=== PATIENT | female | born 1940 | race Caucasian/White ===

== ENCOUNTER 2019-09-12 11:57 | Emergency (ER) | payer MEDICARE, OTHER, SELFPAY ==
[2019-09-12 12:26] VITALS: BP 127/61; PULSE 71; RESP 20; TEMP 36.6; O2SAT 97; BMI 34.3
--- NOTE | 2019-09-12 12:49 | XRR_ITS ---
PROCEDURE INFORMATION: Exam: XR Chest, 2 Views Exam date and time: 09/12/2019 1:15 PM Age: 79 years old Clinical indication: On breathing; Patient HX: Fall August 01, right sided chest pain with deep breaths; Additional info: Fall, dyspnea TECHNIQUE: Imaging protocol: XR of the chest Views: Frontal and lateral upright views. COMPARISON: CR Chest 1 [place] [id number] 04/09/2019 6:56 AM FINDINGS: Lungs: Mild LEFT lateral basilar subsegmental atelectasis. The lungs are otherwise peripherally clear bilaterally. The pulmonary vasculature is normal. Pleural space: Minimal LEFT pleural effusion. Heart/Mediastinum: The heart is normal in size and contour. Vasculature: Mild aortic arch atherosclerotic calcification without ectasia. Bones/joints: Thoracic spine vertebral body marginal osteophytes are noted at multiple levels. Degenerative disk disease is present at mid-thoracic spine disk levels. XR/XR chest 2V* [id number] IMPRESSION: 1. Mild LEFT lateral basilar subsegmental atelectasis. 2. Minimal LEFT pleural effusion.
--- NOTE | 2019-09-12 14:05 | ED_ITS ---
HPI - Fall General: Chief Complaint: Fall Stated Complaint: Right thoracic pain post fall Time Seen by Provider: 09/12/19 14:05 History of Present Illness: HPI Narrative: Boris is a 79-year-old white female who presents with a ten-day history of falling face first on some concrete and having persistent right-sided lower rib pain since the fall. She states she will occasionally take ibuprofen if the pain gets worse enough . She denies any abdominal pain, nausea, vomiting. She is not currently on any blood thinners. Patient has midline tenderness on T1/2 area. MD complaint: fall Associated symptoms-after fall: Reports chest pain (right lower rib pain); Denies abdominal pain, headache(s) or neck pain Review of Systems Const: Denies: fever or chills Eyes: Denies: change in vision or blurry vision ENMT: Denies: throat pain Card: Reports: chest pain (right lower rib pain); Denies: palpitations Resp: Reports: pain on inspiration (deep inspiration); Denies: shortness of breath GI: Denies: abdominal pain, nausea or vomiting Musc: Denies: neck pain or back pain Skin/Breast: Denies: itching Neuro: Denies: headache or numbness in extremities Psych: Denies: anxiety PFSH ED PFSH: Statuses (acute, chronic, etc) shown below reflect problem list status as previously entered and may not be historically accurate Social History Smoking and tobacco status: never smoked Physical Exam Const: COMMON NORMALS: no apparent distress, oriented x3 and no limitations HENMT: COMMON NORMALS: normocephalic HEAD & SCALP: normocephalic Eye: COMMON NORMALS: PERRL, EOMs intact bilaterally and conjunctivae normal CONJUNCTIVA: Yes conjunctivae normal PUPIL: Yes PERRL Chest: COMMONS NORMALS: inspection of chest normal Resp: COMMON NORMALS: normal respiratory effort and clear to auscultation bilaterally EFFORT & INSPECTION: Yes able to speak in complete sentences AUSCULTATION: clear to auscultation bilaterally Cardio: COMMON NORMALS: regular rate and regular rhythm RATE: regular rate RHYTHM: regular rhythm GI: COMMON NORMALS: normal to inspection, nondistended, normoactive bowel sounds Back/Pelvis: LUMBAR SPINE/LOWER BACK: Yes normal to inspection BACK IMAGE (FEMALE): 1. Tender to palpation here Extremity: COMMON NORMALS: normal to inspection Neuro: COMMON NORMALS: oriented x3, moves all extremities, no focal motor deficits and no sensory deficits noted Psych: COMMON NORMALS: mental status grossly normal ACTIVITY/MOTOR BEHAVIOR: Yes appropriate eye contact Course ED course: Xray is negative but given her midline t spine tenderness will get CT of thoracic spine. Vital Signs: Vital signs: Vital Signs Temperature 97.4 F L 09/12/19 14:43 Pulse Rate 64 09/12/19 14:43 Respiratory Rate 16 09/12/19 14:43 Blood Pressure 149/72 09/12/19 14:43 Pulse Oximetry 97 09/12/19 14:43 MDM - Fall Imaging Data^: CXR: Attestation: I personally reviewed and interpreted this imaging study as follows: Radiologist's impression: IMPRESSION: 1. Mild LEFT lateral basilar subsegmental atelectasis. 2. Minimal LEFT pleural effusion. Other Imaging: Radiologist's impression: CT thoracic spine: IMPRESSION: 1. Degenerative changes as above. 2. No acute thoracic spinal bony abnormality identified. Discharge Plan Discharge Patient Disposition: Home, Self-Care Clinical Impression: Musculoskeletal chest pain Back pain, thoracic Qualifiers: Chronicity: acute Back pain laterality: midline Qualified Code(s): M54.6 - Pain in thoracic spine Condition: Stable Prescriptions: New naproxen 500 mg tablet 500 mg PO BID PRN (Reason: pain) Qty: 12 RF: 0 Referrals: Felice Parra, ASSISTANT PROFESSOR OF ANTHROPOLOGY-C [Primary Care Provider] - Discharge Diet: Advance as tolerated Discharge Activity: Limit activity as instructed Patient Instructions: Fall Prevention (ED) Activity Restrictions/Additional Instructions: Drink plenty of fluids. Use pain medication as needed as directed. Follow-up with your family doctor in 3-5 days. No heavy lifting for the next 2-4 days. Return if any problems. Coding Level of Care Code ED Cost Accountant for Anh Lozano Exam Problem Focused
--- NOTE | 2019-09-12 14:16 | CTR_ITS ---
PROCEDURE INFORMATION: Exam: CT Thoracic Spine Without Contrast Exam date and time: 09/12/2019 3:12 PM Age: 79 years old Clinical indication: Injury or trauma; Initial encounter; Blunt trauma (contusions or hematomas); Other: Midline tenderness t1/2; Injury date: 09/01/19; Patient HX: Fall sep 01, constant tspine pain since TECHNIQUE: Imaging protocol: Computed tomography images of the thoracic spine without contrast. Total DLP: 1888.45 mGy-cm Radiation optimization: All CT scans at this facility use at least one of these dose optimization techniques: automated exposure control; mA and/or kV adjustment per patient size (includes targeted exams where dose is matched to clinical indication); or iterative reconstruction. COMPARISON: No relevant prior studies available. FINDINGS: Vertebrae: Thoracic spine vertebral body marginal osteophytes are noted at multiple levels. Diffuse osteopenia. Mild T3-4 spondylosis. Mild T7-T8 spondylosis, with degenerative disc disease. Mild T11-12 spondylosis. Moderate T12-L1 spondylosis. Discs/Spinal canal/Neural foramina: Severe right T3-4 neural foraminal stenosis. Soft tissues: Unremarkable. Vasculature: Mild aortic valvular calcification is present. Mediastinum: A small ductus bump is present, a normal variant.RIGHT hilar granulomatous case calcifications are present. CT/CT thoracic spin wo con* [id number] IMPRESSION: 1. Degenerative changes as above. 2. No acute thoracic spinal bony abnormality identified. Radiation Dose CTDIVOL = (mGy): DLP = 1888.45 (mGy-cm)
[2019-09-12 14:43] VITALS: BP 149/72; PULSE 64; RESP 16; TEMP 36.3; O2SAT 97
[2019-09-12 17:08] VITALS: BP 150/78; PULSE 64; RESP 16; TEMP 36.5; O2SAT 97
== END 2019-09-12 17:05 | disposition home or self-care (01) ==
PROVIDERS: Emergency Provider Physician Assistant; Family Provider Nurse Practitioner; PCP Nurse Practitioner
DX: R07.89 Other chest pain (principal); M54.6 Pain in thoracic spine
CPT/HCPCS: 71046; 72128; 99281

== ENCOUNTER → 2019-09-14 09:12 | Outpatient (BNVA) | payer MEDICARE, OTHER, SELFPAY | PROVIDERS: Family Provider Nurse Practitioner; PCP Nurse Practitioner; Visit Provider Podiatrist Foot & Ankle Surgery | DX: S92.421A Displaced fracture of distal phalanx of right great toe, initial encounter for closed fracture (principal); X58.XXXA Exposure to other specified factors, initial encounter; M19.071 Primary osteoarthritis, right ankle and foot | CPT/HCPCS: 73630 ==

== ENCOUNTER → 2019-10-24 09:14 | Outpatient (BNVA) | payer MEDICARE, OTHER, SELFPAY | PROVIDERS: Family Provider Nurse Practitioner; PCP Nurse Practitioner; Visit Provider Nurse Practitioner | DX: E11.9 Type 2 diabetes mellitus without complications (principal); E03.9 Hypothyroidism, unspecified | CPT/HCPCS: 80053; 80061; 83036; 84443 ==

== ENCOUNTER → 2020-01-17 09:10 | Outpatient (BNVA) | payer MEDICARE, OTHER, SELFPAY | PROVIDERS: Family Provider Nurse Practitioner; PCP Nurse Practitioner; Visit Provider Nurse Practitioner | DX: E03.8 Other specified hypothyroidism (principal); E11.9 Type 2 diabetes mellitus without complications; I10 Essential (primary) hypertension; Z79.84 Long term (current) use of oral hypoglycemic drugs | CPT/HCPCS: 80053; 80061; 83036; 84443 ==

== ENCOUNTER → 2020-04-17 09:42 | Outpatient (BNVA) | payer MEDICARE, OTHER, SELFPAY | PROVIDERS: Family Provider Nurse Practitioner; PCP Nurse Practitioner; Visit Provider Nurse Practitioner | DX: E03.8 Other specified hypothyroidism (principal); E11.9 Type 2 diabetes mellitus without complications; Z79.84 Long term (current) use of oral hypoglycemic drugs; E78.2 Mixed hyperlipidemia | CPT/HCPCS: 80053; 80061; 83036; 84443 ==

== ENCOUNTER → 2020-05-07 14:40 | Outpatient (BNVA) | payer MEDICARE, OTHER, SELFPAY | PROVIDERS: Family Provider Nurse Practitioner; PCP Nurse Practitioner; Visit Provider Nurse Practitioner | DX: R11.2 Nausea with vomiting, unspecified (principal) | CPT/HCPCS: 81000; 85025 ==

== ENCOUNTER 2020-05-08 12:45 | Emergency (ER) | payer MEDICARE, OTHER, SELFPAY ==
[2020-05-08 12:54] VITALS: BP 156/74; PULSE 70; RESP 16; TEMP 36.8; O2SAT 98; BMI 36.3
[2020-05-08 13:01] VITALS: BP 168/79; PULSE 74; RESP 18; O2SAT 97
[2020-05-08 16:35] LABS: Basophils # 0.1 10^3/uL (0.0-0.1); Basophils % 0.5 %; Eosinophils # 0.1 10^3/uL (0.0-0.8); Eosinophils % 0.7 %; Hematocrit 41.8 % (37.0-47.0); Hemoglobin 13.9 g/dL (11.5-15.3); Lymphocytes # 2.1 10^3/uL (0.8-4.8); Lymphocytes % 19.4 %; Mean Corpuscular HGB Conc 33.3 g/dL (30.0-36.0); Mean Corpuscular Volume 96.3 fL (81-99); Mean Platelet Volume 10.4 fL (7.4-10.4); Monocytes # 0.8 10^3/uL (0.2-0.9); Monocytes % 7.2 %; Neutrophils # 7.69 10^3/uL (1.8-7.7); Neutrophils % 71.9 %; Nucleated Red Blood Cells % 0 %; Platelet Count 226 10^3/cmm (130-400); Red Blood Count 4.34 10^6/uL (4.1-5.3); White Blood Count 10.7 10^3/uL (4.0-10.0)
[2020-05-08 16:53] LABS: Alanine Aminotransferase 17 U/L (0-33); Albumin Level 4.2 g/dL (3.5-5.2); Alkaline Phosphatase 118 IU/L (35-105); Anion Gap 15.5 (5-19); Aspartate Amino Transferase 19 U/L (0-32); Blood Urea Nitrogen 10 mg/dL (8-23); Calcium 9.3 mg/dL (8.5-10.5); Carbon Dioxide 27 mmol/L (22-29); Chloride 107 mmol/L (98-107); Creatinine Clr Calc Pharmacy 66.2726; Glucose 127 mg/dL (65-115); Lipase 14 U/L (13-60); Osmolality Calculated 303 mOsm/kg (285-295); Potassium 3.5 mmol/L (3.5-5.1); Sodium 146 mmol/L (136-145); Total Bilirubin 0.6 mg/dL (0.15-1.2); Total Protein 7.2 g/dL (6.6-8.7)
[2020-05-08 17:25] LABS: Add Urine Microscopic? NO
[2020-05-08 17:27] LABS: Specific Gravity, Urine 1.015 (1.005-1.030); Urine Appearance Clear (CLEAR); Urine Color Yellow (Yellow); pH Urine 6.5 (5-7)
[2020-05-08 17:28] LABS: Bilirubin Urine Neg (Negative); Blood Urine Neg (Negative); Glucose Urine UA Norm (Normal); Ketones Urine 1+ (Negative); Leukocyte Esterase Urine Negative (Negative); Nitrate Urine Negative (Negative); Protein Urine Neg (Negative); Urobilinogen Urine 1 mg/dL (Negative)
[2020-05-08] MEDS: ondansetron 2 mg/ML SDV 2 mL 4 MG IVP (17:40)
[2020-05-08] MEDS: sodium chloride 0.9% 1,000 ML 999 ML IV (17:40)
--- NOTE | 2020-05-08 18:06 | ED_ITS ---
HPI - Headache General: Chief Complaint: Headache Stated Complaint: [place]/headache Time Seen by Provider: 05/08/20 16:36 History of Present Illness: HPI Narrative: This patient presents with symptoms of vomiting since Thursday morning. She also has had a headache. Headache started today. She has not had a fever. She has a history of tick fever which was diagnosed a year ago. She is been a week in the hospital here and then a week in the hospital in [place] because of that tick fever. She also has been told that she needed to have her gallbladder looked at. She denies any exposures to COVID. MD elicited complaint: headache Onset (ago): day(s) (Vomiting for 2 days, headache for 1 day) Onset description: gradually Location: diffuse Severity: moderate Associated symptoms: Reports nausea and vomiting; Deny chest pain, fever(s), malaise or rash Review of Systems General: Reports: 10 or more systems reviewed and unremarkable except in HPI and below Const: Denies: fever(s), chills, fatigue or malaise Eyes: Denies: change in vision ENMT: Denies: odynophagia Card: Denies: chest pain or swelling of feet/ankles Resp: Denies: dyspnea, productive cough or non-productive cough GI: Reports: abdominal pain, nausea and vomiting : Denies: flank pain or difficulty voiding Musc: Denies: neck pain or back pain Skin/Breast: Denies: rash Neuro: Denies: headache(s), numbness in extremities or weakness in extremities Shay/Lymph: Denies: easy bruising or easy bleeding PFSH ED PFSH: Medical History Adult onset hypothyroidism Anxiety Diabetes mellitus treated with oral medication Diverticulosis Essential (primary) hypertension Hyperlipidemia Surgical History H/O tubal ligation Hx of angiography Hx of colonoscopy Status post left foot surgery Hammer toes left Family History Other Heart disease Hypertension Denies family history of Diabetes CAD (coronary artery disease) Clotting disorder Dementia Hyperlipidemia Psychiatric illness Chronic kidney disease (CKD) Suicide Anesthesia complication Bleeding disorder Family history of premature coronary artery disease Lung disease Cancer Stroke Social History Smoking and tobacco status: never smoked Second hand smoke exposure: No Smoking risk assessment/counseling performed?: No Alcohol intake: never Desire information about alcohol rehabilitation?: No Counseling given: No Desire information about substance/drug rehabilitation?: No Counseling given: No Adopted: No Caregiver/support person: No Lives independently: Yes Household members: none Housing: House Marital status: / Number of children: 4 service: No Current occupational status: retired Current occupational exposures/hazards: No Pets and animals: Yes History of recent travel: No Current gender identity: Female Physical Exam Const: COMMON NORMALS: no acute distress, patient oriented x3, no limitations and alert GENERAL APPEARANCE: cooperative and comfortable HENMT: HEAD & SCALP: normal to inspection FACE & SINUS: normal facial exam Eye: GENERAL EYE: appearance normal, both eyes and all related structures Neck/C-Spine: COMMON NORMALS: supple, no meningeal signs and no JVD Chest: COMMONS NORMALS: normal inspection of the chest Resp: COMMON NORMALS: normal respiratory effort, No use of accessory muscles and clear to auscultation bilaterally AUSCULTATION: clear to auscultation bilaterally Cardio: COMMON NORMALS: no JVD, regular rate, regular rhythm and No murmurs present (Cardio) RATE: regular rate RHYTHM: regular rhythm GI: COMMON NORMALS: Normal to inspection, nondistended, normoactive bowel sounds present, Soft to palpation and non-tender INSPECTION: Yes normal to inspection AUSCULTATION: Yes normoactive bowel sounds PALPATION: Yes Soft to palpation Back/Pelvis: COMMON NORMALS: thoracic and lumbar spine normal to inspection Extremity: COMMON NORMALS: normal to inspection Neuro: COMMON NORMALS: patient oriented x3, moves all extremities, no focal motor deficits and no sensory deficits noted SENSORIUM/ORIENTATION: Yes alert MENINGEAL SIGNS: Yes no meningeal signs Psych: COMMON NORMALS: mental status grossly normal, cooperative and normal affect Skin: COMMON NORMALS: no rashes or lesions noted and turgor normal GENERAL SKIN EXAM: no rashes or lesions noted and turgor normal Course ED course: Patient felt much better while in the ED. She was able to tolerate some p.o. fluids. She is somewhat dehydrated and that makes sense with her symptoms. I think that is privates causing her headache. Not sure the cause of her vomiting but it could easily have been some mild GI bug. She understands that as long as she is doing well she can still advance her diet at home and probably can proceed with her knee surgery that scheduled for Thursday. She also understands that if she is not doing better she needs to follow-up or return to the ER. Vital Signs: Vital signs: Vital Signs Temperature 98.2 F 05/08/20 12:54 Pulse Rate 74 05/08/20 19:50 Respiratory Rate 18 05/08/20 19:50 Blood Pressure 146/78 05/08/20 19:50 Pulse Oximetry 98 05/08/20 19:50 MDM - Headache Lab Data: Labs: Lab Results 05/08/20 05/08/20 05/08/20 Range/Units 16:20 16:20 17:15 WBC 10.7 H (4.0-10.0) 10^3/ uL RBC 4.34 (4.1-5.3) 10^6/u L Hgb 13.9 (11.5-15.3) g/dL Hct 41.8 (37.0-47.0) % MCV 96.3 (81-99) fL MCH 32.0 (28.0-34.0) pg MCHC 33.3 (30.0-36.0) g/dL RDW 12.0 L (12.1-15.1) % Plt Count 226 (130-400) 10^3/c mm MPV 10.4 (7.4-10.4) fL Neut % (Auto) 71.9 % Lymph % (Auto) 19.4 % [place] % (Auto) 7.2 % Eos % (Auto) 0.7 % Baso % (Auto) 0.5 % Neut # (Auto) 7.69 (1.8-7.7) 10^3/u L Lymph # (Auto) 2.1 (0.8-4.8) 10^3/u L [place] # (Auto) 0.8 (0.2-0.9) 10^3/u L Eos # (Auto) 0.1 (0.0-0.8) 10^3/u L Baso # (Auto) 0.1 (0.0-0.1) 10^3/u L Nucleated RBC % (a uto) 0 % Nucleated RBCs # 0.0 /100WBC Sodium 146 H (136-145) mmol/L Potassium 3.5 (3.5-5.1) mmol/L Chloride 107 (98-107) mmol/L Carbon Dioxide 27 (22-29) mmol/L Anion Gap 15.5 (5-19) BUN 10 (8-23) mg/dL Creatinine 0.7 (0.5-0.9) mg/dL GFR Calculation Not Reportable Glucose 127 H (65-115) mg/dL Calculated Osmolal ity 303 H (285-295) mOsm/k g Calcium 9.3 (8.5-10.5) mg/dL Total Bilirubin 0.6 (0.15-1.2) mg/dL AST 19 (0-32) U/L ALT 17 (0-33) U/L Alkaline Phosphata se 118 H (35-105) IU/L Total Protein 7.2 (6.6-8.7) g/dL Albumin 4.2 (3.5-5.2) g/dL Globulin 3.0 (1.3-4.6) g/dL Lipase 14 (13-60) U/L Urine Color Yellow (Yellow) Urine Appearance Clear (CLEAR) Urine pH 6.5 (5-7) Ur Specific Gravit y 1.015 (1.005-1.030) Urine Protein Neg (Negative) Urine Glucose (UA) Norm (Normal) Urine Ketones 1+ H (Negative) Urine Blood Neg (Negative) Urine Nitrate Negative (Negative) Urine Bilirubin Neg (Negative) Urine Urobilinogen 1 H (Negative) mg/dL Ur Leukocyte Terri ase Negative (Negative) Discharge Plan Discharge Patient Disposition: Home Clinical Impression: Vomiting Qualifiers: Vomiting type: unspecified Vomiting Intractability: non-intractable Nausea presence: with nausea Qualified Code(s): R11.2 - Nausea with vomiting, unspecified Condition: Stable Prescriptions: No Action carvedilol 6.25 mg tablet 6.25 mg PO DAILY RF: 0 atorvastatin 40 mg tablet 40 mg PO DAILY Qty: 90 RF: 0 furosemide [Lasix] 20 mg tablet 40 mg PO QAM Qty: 180 RF: 0 levothyroxine 125 mcg tablet 125 mcg PO DAILY Qty: 90 RF: 0 lisinopril 10 mg tablet 10 mg PO DAILY Qty: 90 RF: 0 metformin 500 mg tablet extended release 24 hr 1,000 mg PO DAILY Qty: 180 RF: 0 potassium chloride 20 mEq tablet,ER particles/crystals 20 meq PO DAILY Qty: 90 RF: 0 sertraline 25 mg tablet 25 mg PO DAILY Qty: 30 RF: 0 Vitamin D3 25 mcg (1,000 unit) Tablet 25 mcg PO DAILY RF: 0 Glucosamine Daily Complex 1,500-400-100 mg-unit-mg Tablet 1 tab PO DAILY RF: 0 Discharge Orders: Discharge Order (Routine); Ordered 05/08/20 Ordered By: Emeli Terry Referrals: Felice Parra, REWORK OPERATOR-C [Primary Care Provider] - Discharge Diet: Advance as tolerated Discharge Activity: Resume usual activity Patient Instructions: Acute Nausea and Vomiting (ED) Discharge Date/Time: 05/08/20 19:52 Coding Level of Care Code ED Abrasives Sales Representative for Anh Fwwojciech Exam Comprehensive
[2020-05-08 19:50] VITALS: BP 146/78; PULSE 74; RESP 18; O2SAT 98
== END 2020-05-08 19:52 | disposition home or self-care (01) ==
PROVIDERS: Nurse Practitioner Family; Emergency Provider Emergency Medicine; PCP Nurse Practitioner
DX: R11.2 Nausea with vomiting, unspecified (principal); E11.9 Type 2 diabetes mellitus without complications; I10 Essential (primary) hypertension; E78.5 Hyperlipidemia, unspecified
CPT/HCPCS: 12345; 36415; 80053; 81003; 83690; 85025; 96360; 96374; 96375; 99283; J2405; J7030

== ENCOUNTER 2020-06-13 06:00 | Outpatient (RCR) | payer MEDICARE, OTHER, SELFPAY | END 2020-06-16 23:59 | disposition home or self-care (01) | LOC: APT 06:00 | PROVIDERS: PCP Nurse Practitioner; Referring Provider Orthopaedic Surgery; Visit Provider Orthopaedic Surgery | DX: M17.11 Unilateral primary osteoarthritis, right knee (principal) | CPT/HCPCS: 97110; 97140; 97163 ==

== ENCOUNTER 2020-06-13 16:42 | Outpatient (CLI) | payer MEDICARE, OTHER, SELFPAY ==
--- NOTE | 2020-06-13 | USCV_ITS ---
Shanique Wang Age: 79 Gender: F : 1940 Exam Date: 06/13/2020 17:08 Ordering Phys: Felice Parra Technologist: Lenore Bazan [place] [facility] [place]: RIGHT LEG PAIN PROCEDURES: Venous duplex imaging was performed in only the right lower extremity. The following venous structures were evaluated: common femoral vein, profunda vein, proximal portion of the greater saphenous vein, superficial femoral vein, and the popliteal vein. In addition, the posterior tibial and peroneal trunk were evaluated. Serial compression, augmentation maneuvers, and spectral Doppler flow evaluation were performed. FINDINGS: Normal 2-D Doppler and augmentation and compressibility throughout the lower extremity venous structures. Additional imaging through the proximal calf veins also reveals no thrombus. Limited evaluation of the greater saphenous vein is patent with no thrombus. CONCLUSIONS No DVT right lower extremity. Dr. Harika Rivera DO (Electronically Signed) Final Date: 14 June 2020 09:41 S
== END 2020-06-13 16:43 | disposition home or self-care (01) ==
LOC: RAD 16:49
PROVIDERS: PCP Nurse Practitioner; Visit Provider Nurse Practitioner
DX: M79.604 Pain in right leg (principal)
CPT/HCPCS: 80048; 93971

== ENCOUNTER 2020-06-17 06:00 | Outpatient (RCR) | payer MEDICARE, OTHER, SELFPAY | END 2020-07-16 23:59 | disposition home or self-care (01) | LOC: APT 06:00 | PROVIDERS: PCP Nurse Practitioner; Referring Provider Orthopaedic Surgery; Visit Provider Orthopaedic Surgery | DX: Z47.1 Aftercare following joint replacement surgery (principal); Z96.651 Presence of right artificial knee joint | CPT/HCPCS: 97110; 97116; 97140 ==

== ENCOUNTER → 2020-07-10 13:59 | Outpatient (BNVA) | payer MEDICARE, OTHER, SELFPAY | PROVIDERS: PCP Nurse Practitioner; Visit Provider Nurse Practitioner | DX: E11.9 Type 2 diabetes mellitus without complications (principal); Z79.84 Long term (current) use of oral hypoglycemic drugs; E78.2 Mixed hyperlipidemia; I10 Essential (primary) hypertension; E03.8 Other specified hypothyroidism | CPT/HCPCS: 80053; 80061; 83036; 84443; 85025 ==

== ENCOUNTER 2020-07-17 06:00 | Outpatient (RCR) | payer MEDICARE, OTHER, SELFPAY | END 2020-08-16 23:59 | disposition home or self-care (01) | LOC: APT 06:00 | PROVIDERS: PCP Nurse Practitioner; Referring Provider Orthopaedic Surgery; Visit Provider Orthopaedic Surgery | DX: Z47.1 Aftercare following joint replacement surgery (principal); Z96.651 Presence of right artificial knee joint | CPT/HCPCS: 97110; 97140 ==

== ENCOUNTER → 2020-09-13 09:29 | Outpatient (BNVA) | payer MEDICARE, OTHER, SELFPAY | PROVIDERS: PCP Nurse Practitioner; Visit Provider Nurse Practitioner Family | DX: Z20.828 Contact with and (suspected) exposure to other viral communicable diseases (principal) | CPT/HCPCS: 87635 ==

== ENCOUNTER → 2020-10-22 09:07 | Outpatient (BNVA) | payer MEDICARE, OTHER, SELFPAY | PROVIDERS: PCP Nurse Practitioner; Visit Provider Nurse Practitioner | DX: E03.8 Other specified hypothyroidism (principal); E11.9 Type 2 diabetes mellitus without complications; Z79.84 Long term (current) use of oral hypoglycemic drugs; E78.2 Mixed hyperlipidemia; I10 Essential (primary) hypertension | CPT/HCPCS: 80053; 80061; 81000; 83036; 84443; 85025 ==

== ENCOUNTER 2020-10-31 06:00 | Outpatient (RCR) | payer MEDICARE, OTHER, SELFPAY | END 2020-11-14 23:59 | disposition home or self-care (01) | LOC: APT 06:00 | PROVIDERS: PCP Nurse Practitioner; Referring Provider Orthopaedic Surgery; Visit Provider Orthopaedic Surgery | DX: Z47.1 Aftercare following joint replacement surgery (principal); Z96.651 Presence of right artificial knee joint | CPT/HCPCS: 97110; 97163 ==

== ENCOUNTER 2020-11-15 06:00 | Outpatient (RCR) | payer MEDICARE, OTHER, SELFPAY | END 2020-12-14 23:59 | disposition home or self-care (01) | LOC: APT 06:00 | PROVIDERS: PCP Nurse Practitioner; Referring Provider Orthopaedic Surgery; Visit Provider Orthopaedic Surgery | DX: Z47.1 Aftercare following joint replacement surgery (principal); Z96.651 Presence of right artificial knee joint | CPT/HCPCS: 97110 ==

== ENCOUNTER → 2021-01-25 09:00 | Outpatient (BNVA) | payer MEDICARE, OTHER, SELFPAY | PROVIDERS: PCP Nurse Practitioner; Visit Provider Nurse Practitioner | DX: E03.8 Other specified hypothyroidism (principal); E11.9 Type 2 diabetes mellitus without complications; Z79.84 Long term (current) use of oral hypoglycemic drugs; E78.2 Mixed hyperlipidemia; I10 Essential (primary) hypertension | CPT/HCPCS: 80053; 80061; 83036; 84443; 85025 ==

== ENCOUNTER 2021-02-20 06:00 | Outpatient (RCR) | payer MEDICARE, OTHER, SELFPAY | END 2021-03-16 23:59 | disposition home or self-care (01) | LOC: APT 06:00 | PROVIDERS: Referring Provider Nurse Practitioner; Visit Provider Nurse Practitioner | DX: R26.89 Other abnormalities of gait and mobility (principal) | CPT/HCPCS: 97110; 97163 ==

== ENCOUNTER 2021-02-22 11:08 | Emergency (ER) | payer MEDICARE, OTHER, SELFPAY ==
[2021-02-22 11:10] VITALS: BP 162/84; PULSE 72; RESP 16; TEMP 36.8; O2SAT 94; BMI 36.3
--- NOTE | 2021-02-22 12:45 | ECG_ITS ---
[facility] Test Date: 2021-02-22 Pat Name: Shanique Wang Department: Room: Gender: Female Supervisor Coating: : 1940 Requested By: Teresa Monsalve Order Number: [id number] Vane MD: Gaurav Espinoza M.D. Measurements Intervals [place] Rate: 72 P: 13 ME: 166 QRS: 14 QRSD: 106 T: 38 QT: 390 QTc: 427 Interpretive Statements SINUS RHYTHM No previous ECG available for comparison Electronically Signed On 02-24-2021 17:17:48 CDT by Gaurav Espinoza M.D. [id number]
--- NOTE | 2021-02-22 12:45 | XR_ITS ---
WS: [id number] Portable AP upright chest, 02/22/2021 Clinical Data: chest pain Comparison: PA and lateral chest, 09/12/2019. Findings: No nodules, masses or effusions are seen. The heart is slightly enlarged. The pulmonary vas cularity is not increased. No pneumonia or pneumothorax is seen. The aortic arch and descending aorta show minimal tortuosity. 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 XR/XR chest 1V portable [id number] Impression: Cardiomegaly and atherosclerosis.
[2021-02-22 14:14] LABS: Basophils % 0.6 %; Eosinophils # 0.1 10^3/uL (0.0-0.8); Eosinophils % 1.8 %; Hematocrit 44.9 % (37.0-47.0); Hemoglobin 14.7 g/dL (11.5-15.3); Lymphocytes # 1.5 10^3/uL (0.8-4.8); Lymphocytes % 20.2 %; Mean Corpuscular HGB Conc 32.7 g/dL (30.0-36.0); Mean Corpuscular Hemoglobin 31.6 pg (28.0-34.0); Mean Corpuscular Volume 96.6 fL (81-99); Mean Platelet Volume 10.6 fL (7.4-10.4); Monocytes # 0.5 10^3/uL (0.2-0.9); Monocytes % 6.8 %; Neutrophils # 5.09 10^3/uL (1.8-7.7); Neutrophils % 70.3 %; Nucleated Red Blood Cells % 0 %; Platelet Count 180 10^3/cmm (130-400); Red Blood Count 4.65 10^6/uL (4.1-5.3); Red Cell Distribution Width 12.4 % (12.1-15.1); White Blood Count 7.2 10^3/uL (4.0-10.0)
--- NOTE | 2021-02-22 14:24 | ED_ITS ---
HPI - General Adult General: Chief complaint: General Medical Stated complaint: Chest pain, L arm pain, N/V Time Seen by Provider: 02/22/21 14:23 History of Present Illness: HPI narrative: 80-year-old female presents to the emergency room with complaints of chest pain nausea and vomiting and palpitations. Happened this morning she was at rest at the time it resolved spontaneously she has had it in the past she is generally does not feel good it will get better as the day goes on. She has previously had several angiograms last one being approximately 4 years ago which she states she was told was normal is not done any interventions at any of the angiograms. Patient is diabetic and is on Metformin she is on carvedilol she has not had any other rate control medications she only takes aspirin is not on any anticoagulants she has no history of DVT not recently had any fever sweats chills or productive cough no orthopnea Onset (ago): hour(s) Location: chest Radiation: non-radiation Severity: mild Quality: sharp Pain Consistency: intermittent and now resolved Relieving factors: none Exacerbating factors: none Associated symptoms: Reports chest pain and nausea; Deny confusion, cough, diaphoresis, decreased appetite, dyspnea, fevers/chills, headache(s), malaise, rash, palpitations, seizures, short of breath, syncope, vomiting or weakness Treatments prior to arrival: none Review of Systems Const: Denies: malaise or diaphoresis ENMT: Denies: throat pain, ear or mastoid pain, nasal discharge or nasal congestion Card: Reports: chest pain; Denies: palpitations or syncope Resp: Denies: dyspnea GI: Reports: nausea; Denies: vomiting : Denies: flank pain, difficulty voiding, dysuria, urinary frequency or urinary urgency Skin/Breast: Denies: rash Neuro: Denies: headache(s) or confusion Physical Exam Const: COMMON NORMALS: no acute distress GENERAL APPEARANCE: cooperative and comfortable ORIENTATION/CONSCIOUSNESS: Yes awake, Yes oriented to person, Yes oriented to place and Yes oriented to time HENMT: COMMON NORMALS: normocephalic, atraumatic and hearing grossly normal bilaterally HEAD & SCALP: normocephalic and atraumatic Neck/C-Spine: COMMON NORMALS: no JVD Resp: COMMON NORMALS: normal respiratory effort, No retractions, No use of accessory muscles and clear to auscultation bilaterally AUSCULTATION: clear to auscultation bilaterally Cardio: COMMON NORMALS: no JVD, regular rate, regular rhythm and No murmurs present (Cardio) RATE: regular rate RHYTHM: regular rhythm GI: COMMON NORMALS: Soft to palpation and No hepatosplenomegaly present AUSCULTATION: Yes normoactive bowel sounds PALPATION: Yes Soft to palpation, No Tenderness to palpation present (GI), No Guarding due to palpation present (GI) and Yes No hepatosplenomegaly present Extremity: COMMON NORMALS: normal to inspection, capillary refill normal, no clubbing, cyanosis or edema, no calf tenderness and no pedal edema Neuro: SENSORIUM/ORIENTATION: Yes oriented to person, Yes oriented to place and Yes oriented to time Skin: COMMON NORMALS: no rashes or lesions noted GENERAL SKIN EXAM: no rashes or lesions noted Course Vital Signs: Vital signs: Vital Signs Temperature 98.3 F 02/22/21 11:10 Pulse Rate 80 02/22/21 18:50 Respiratory Rate 18 02/22/21 18:50 Blood Pressure 163/96 02/22/21 18:50 Pulse Oximetry 96 02/22/21 18:50 MDM - General Adult MDM Narrative: Medical decision making narrative: Follow-up with your primary care doctor within the next 4 to 5 days return to emergency room if you have any worsening symptoms. Lab Data: Labs: Lab Results 02/22/21 02/22/21 02/22/21 Range/Units 14:09 14:09 14:09 WBC 7.2 (4.0-10.0) 10^3/ uL RBC 4.65 (4.1-5.3) 10^6/u L Hgb 14.7 (11.5-15.3) g/dL Hct 44.9 (37.0-47.0) % MCV 96.6 (81-99) fL MCH 31.6 (28.0-34.0) pg MCHC 32.7 (30.0-36.0) g/dL RDW 12.4 (12.1-15.1) % Plt Count 180 (130-400) 10^3/c mm MPV 10.6 H (7.4-10.4) fL Neut % (Auto) 70.3 % Lymph % (Auto) 20.2 % [place] % (Auto) 6.8 % Eos % (Auto) 1.8 % Baso % (Auto) 0.6 % Neut # (Auto) 5.09 (1.8-7.7) 10^3/u L Lymph # (Auto) 1.5 (0.8-4.8) 10^3/u L [place] # (Auto) 0.5 (0.2-0.9) 10^3/u L Eos # (Auto) 0.1 (0.0-0.8) 10^3/u L Baso # (Auto) 0.0 (0.0-0.1) 10^3/u L Nucleated RBC % (a uto) 0 % Nucleated RBCs # 0.0 /100WBC Sodium 143 (136-145) mmol/L Potassium 3.9 (3.5-5.1) mmol/L Chloride 106 (98-107) mmol/L Carbon Dioxide 27 (22-29) mmol/L Anion Gap 13.9 (5-19) BUN 11 (8-23) mg/dL Creatinine 0.5 (0.5-0.9) mg/dL GFR Calculation Not Reportable Glucose 113 (65-115) mg/dL Calculated Osmolal ity 296 H (285-295) mOsm/k g Calcium 9.0 (8.5-10.5) mg/dL Total Bilirubin 0.6 (0.15-1.2) mg/dL AST 18 (0-32) U/L ALT 23 (0-33) U/L Alkaline Phosphata se 117 H (35-105) IU/L Troponin T Baselin e 20 H (0-10) ng/L Troponin T 120 Min [place] (0-10) ng/L Delta Troponin T (0-10) ABS# Total Protein 6.6 (6.6-8.7) g/dL Albumin 4.1 (3.5-5.2) g/dL Globulin 2.5 (1.3-4.6) g/dL 02/22/21 Range/Units 16:12 WBC (4.0-10.0) 10^3/ uL RBC (4.1-5.3) 10^6/u L Hgb (11.5-15.3) g/dL Hct (37.0-47.0) % MCV (81-99) fL MCH (28.0-34.0) pg MCHC (30.0-36.0) g/dL RDW (12.1-15.1) % Plt Count (130-400) 10^3/c mm MPV (7.4-10.4) fL Neut % (Auto) % Lymph % (Auto) % [place] % (Auto) % Eos % (Auto) % Baso % (Auto) % Neut # (Auto) (1.8-7.7) 10^3/u L Lymph # (Auto) (0.8-4.8) 10^3/u L [place] # (Auto) (0.2-0.9) 10^3/u L Eos # (Auto) (0.0-0.8) 10^3/u L Baso # (Auto) (0.0-0.1) 10^3/u L Nucleated RBC % (a uto) % Nucleated RBCs # /100WBC Sodium (136-145) mmol/L Potassium (3.5-5.1) mmol/L Chloride (98-107) mmol/L Carbon Dioxide (22-29) mmol/L Anion Gap (5-19) BUN (8-23) mg/dL Creatinine (0.5-0.9) mg/dL GFR Calculation Glucose (65-115) mg/dL Calculated Osmolal ity (285-295) mOsm/k g Calcium (8.5-10.5) mg/dL Total Bilirubin (0.15-1.2) mg/dL AST (0-32) U/L ALT (0-33) U/L Alkaline Phosphata se (35-105) IU/L Troponin T Baselin e (0-10) ng/L Troponin T 120 Min [place] 20.28 H (0-10) ng/L Delta Troponin T 0.28 (0-10) ABS# Total Protein (6.6-8.7) g/dL Albumin (3.5-5.2) g/dL Globulin (1.3-4.6) g/dL Discharge Plan Discharge Patient Disposition: Home Clinical Impression: Pneumonia Condition: Stable Prescriptions: New levofloxacin 750 mg tablet 750 mg PO DAILY 10 Days RF: 0 No Action atorvastatin 40 mg tablet 40 mg PO DAILY RF: 0 carvedilol 6.25 mg tablet 6.25 mg PO BID RF: 0 potassium chloride 20 mEq tablet,ER particles/crystals 20 meq PO DAILY RF: 0 levothyroxine 125 mcg tablet 125 mcg PO DAILY RF: 0 lisinopril 10 mg tablet 10 mg PO DAILY RF: 0 sertraline 25 mg tablet 25 mg PO DAILY RF: 0 furosemide 20 mg tablet 20 mg PO DAILY RF: 0 metformin 500 mg tablet extended release 24 hr 1,000 mg PO DAILY RF: 0 Aspir-81 81 mg PO DAILY RF: 0 Zyrtec 10 mg Tablet 10 mg PO DAILY RF: 0 cranberry extract 250 mg Tablet 250 mg PO DAILY RF: 0 Vitamin D3 25 mcg (1,000 unit) Tablet 25 mcg PO DAILY RF: 0 Glucosamine 2 tab PO DAILY RF: 0 Discharge Orders: Discharge ED (Routine); Ordered 02/22/21 Ordered By: Marco Mills Patient Instructions: Opioid Safety Coding Level of Care Code ED Dental Intern for Anh Fwd Exam Comprehensive
--- NOTE | 2021-02-22 14:45 | ECG_ITS ---
[facility] Test Date: 2021-02-22 Pat Name: Shanique Wang Department: Room: Gender: Female Behaviorist: : 1940 Requested By: Teresa Monsalve Order Number: [id number] Vane MD: Gaurav Espinoza M.D. Measurements Intervals [place] Rate: 68 P: 18 WI: 186 QRS: 15 QRSD: 112 T: 24 QT: 391 QTc: 418 Interpretive Statements SINUS RHYTHM MODERATE INTRAVENTRICULAR CONDUCTION DELAY [105+ ms QRS DURATION, 80+ ms Q/S IN V1/V2, NO Q AND 60+ ms R IN I/aVL/V5/V6] Compared to ECG 02/22/2021 11:18:41 Intraventricular conduction delay now present Electronically Signed On 02-24-2021 17:24:48 CDT by Gaurav Espinoza M.D. [id number] f
[2021-02-22 14:53] LABS: Alanine Aminotransferase 23 U/L (0-33); Albumin Level 4.1 g/dL (3.5-5.2); Alkaline Phosphatase 117 IU/L (35-105); Anion Gap 13.9 (5-19); Aspartate Amino Transferase 18 U/L (0-32); Blood Urea Nitrogen 11 mg/dL (8-23); Carbon Dioxide 27 mmol/L (22-29); Chloride 106 mmol/L (98-107); Globulin 2.5 g/dL (1.3-4.6); Glucose 113 mg/dL (65-115); Osmolality Calculated 296 mOsm/kg (285-295); Potassium 3.9 mmol/L (3.5-5.1); Sodium 143 mmol/L (136-145); Total Bilirubin 0.6 mg/dL (0.15-1.2); Total Protein 6.6 g/dL (6.6-8.7); Troponin(5th) Baseline 20 ng/L (0-10)
[2021-02-22 17:02] LABS: Troponin 5 2HR 20.28 ng/L (0-10); Troponin 5 2HR Delta 0.28 ABS# (0-10)
[2021-02-22 18:48] VITALS: BP 157/82; PULSE 75; RESP 18; O2SAT 96
[2021-02-22 18:50] VITALS: BP 163/96; PULSE 80; RESP 18; O2SAT 96
== END 2021-02-22 18:54 | disposition home or self-care (01) ==
PROVIDERS: Physician Assistant; Emergency Provider Family Medicine
DX: J18.9 Pneumonia, unspecified organism (principal); Z79.82 Long term (current) use of aspirin; Z79.84 Long term (current) use of oral hypoglycemic drugs
CPT/HCPCS: 36415; 71045; 80053; 84484; 85025; 93005; 99283

== ENCOUNTER → 2021-04-23 08:51 | Outpatient (BNVA) | payer MEDICARE, OTHER, SELFPAY | PROVIDERS: PCP Nurse Practitioner; Visit Provider Nurse Practitioner | DX: E03.8 Other specified hypothyroidism (principal); E11.9 Type 2 diabetes mellitus without complications; Z79.84 Long term (current) use of oral hypoglycemic drugs; I10 Essential (primary) hypertension | CPT/HCPCS: 80053; 80061; 83036; 84443; 85025 ==

== ENCOUNTER → 2021-05-28 09:48 | Outpatient (BNVA) | payer MEDICARE, OTHER, SELFPAY | PROVIDERS: PCP Nurse Practitioner; Visit Provider Nurse Practitioner | DX: E11.9 Type 2 diabetes mellitus without complications (principal); Z79.84 Long term (current) use of oral hypoglycemic drugs; Z12.39 Encounter for other screening for malignant neoplasm of breast | CPT/HCPCS: 81000 ==

== ENCOUNTER → 2021-07-15 08:45 | Outpatient (BNVA) | payer MEDICARE, OTHER, SELFPAY | PROVIDERS: PCP Nurse Practitioner; Visit Provider Nurse Practitioner | DX: E11.9 Type 2 diabetes mellitus without complications (principal); Z79.84 Long term (current) use of oral hypoglycemic drugs; E03.8 Other specified hypothyroidism | CPT/HCPCS: 80053; 80061; 83036; 84443 ==

== ENCOUNTER 2021-07-26 08:19 | Outpatient (CLI) | payer MEDICARE, OTHER, SELFPAY ==
--- NOTE | 2021-07-26 08:30 | MM_ITS ---
WS: [id number] Exam: [id number] Date/Time of Exam: 07/26/2021 8:28 AM Reason For Exam: Z12.39 - Encounter for other screening for malignant neop... VIEWS: MLO and CC views both breasts. Comparison made with prior exam of 03/24/2016, 07/27/2017, 11/08/2018.. Findings: Stable appearing spiculated density in the medial left breast. No new suspicious mass or nodule. No s uspicious calcification in either breast. Scattered fibroglandular densities MM/[id number] Impression: BI-RADS: 2-Benign FOLLOW-UP: 1 Year Follow-up This mammogram was also analyzed by the Computer Aided Detection System R2 Imag e Furnace Keeper.
== END 2021-07-26 08:20 | disposition home or self-care (01) ==
LOC: RADSHAW 08:22
PROVIDERS: PCP Nurse Practitioner; Visit Provider Nurse Practitioner
DX: Z12.31 Encounter for screening mammogram for malignant neoplasm of breast (principal)
CPT/HCPCS: 77067

== ENCOUNTER → 2021-08-20 11:50 | Outpatient (BNVA) | payer MEDICARE, OTHER, SELFPAY | PROVIDERS: PCP Nurse Practitioner; Visit Provider Nurse Practitioner Family | DX: R07.0 Pain in throat (principal); R59.1 Generalized enlarged lymph nodes | CPT/HCPCS: 85025; 87070; 87880 ==

== ENCOUNTER → 2021-10-07 08:33 | Outpatient (BNVA) | payer MEDICARE, OTHER, SELFPAY | PROVIDERS: PCP Nurse Practitioner; Visit Provider Nurse Practitioner | DX: E03.8 Other specified hypothyroidism (principal); E11.9 Type 2 diabetes mellitus without complications; I10 Essential (primary) hypertension; Z79.84 Long term (current) use of oral hypoglycemic drugs | CPT/HCPCS: 80053; 80061; 83036; 84443 ==

== ENCOUNTER → 2021-10-09 08:54 | Outpatient (BNVA) | payer MEDICARE, OTHER, SELFPAY | PROVIDERS: PCP Nurse Practitioner; Visit Provider Nurse Practitioner | DX: E11.9 Type 2 diabetes mellitus without complications (principal); Z79.84 Long term (current) use of oral hypoglycemic drugs; I10 Essential (primary) hypertension; E03.8 Other specified hypothyroidism; F41.9 Anxiety disorder, unspecified | CPT/HCPCS: 81000 ==

== ENCOUNTER 2021-10-16 12:23 | Outpatient (CLI) | payer MEDICARE, OTHER, SELFPAY ==
--- NOTE | 2021-10-16 12:39 | CT_ITS ---
WS: [id number] CT NECK TECHNIQUE: Contrast-enhanced CT of the neck with coronal and sagittal reformatted images. CLINICAL INFORMATION: DYSPHAGIA COMPARISON: None. DLP: 254.[address] scans at [facility] use at least one of these dose optimization techniques: automated e xposure control; mA and/or kV adjustment per patient size (includes targeted exams where dose is matc hed to clinical indication); or iterative reconstruction. FINDINGS: Parotid glands are normal. Normal submandibular glands. Normal tongue base. Normal palatine tonsils. Normal parapharyngeal fat. Normal posterior nasopharynx. No evidence of supraglottic or glottic mass. Normal piriform sinuses. Subglottic airway is patent. No cervical lymphadenopathy. Straightening of the normal cervical lordosis. Mild cervical curve. Mode rate spondylitic changes cervical spine. Retropharyngeal course RIGHT cervical ICA. No cervical lymph adenopathy. Small peribronchial nodules in RIGHT upper lobe largest measuring 3 mm. Paranasal sinuses and mastoid air cells well aerated. 0This can be further evaluated with chest CT. CT/CT neck w con* [id number] IMPRESSION: 1. No evidence of supraglottic or glottic mass. 2. Normal posterior nasopharynx and tongue base. 3. No cervical lymphadenopathy. 4. Normal salivary glands. 5. Cluster of peribronchial nodules in the RIGHT upper lobe largest measuring 3 mm. This can be further evaluated chest CT. 6. Moderate spondylitic changes cervical spine. 7. Retropharyngeal course RIGHT cervical ICA.
[2021-10-16] MEDS: iohexol 300 mg/mL 100 mL Btl IV (13:30)
== END 2021-10-16 12:24 | disposition home or self-care (01) ==
LOC: RAD 12:27
PROVIDERS: PCP Nurse Practitioner; Visit Provider Specialist
DX: R13.10 Dysphagia, unspecified (principal)
CPT/HCPCS: 70491

== ENCOUNTER 2021-10-18 09:27 | Outpatient (CLI) | payer MEDICARE, OTHER, SELFPAY ==
--- NOTE | 2021-10-18 09:45 | FL_ITS ---
WS: [id number] Barium swallow and esophagram, 10/18/2021 Clinical Data: DYSPHAGIA Comparison: None. Fluoroscopy time: 0.9 minutes. Findings: The patient swallowed the thick and thin barium, and it flowed through the hypopharynx without hesita tion. No stricture, mass, polyp or erosion was seen. No aspiration or penetration occurred. The barium entered the esophagus and there was normal motility throughout. No hiatal hernia, reflux, stricture, polyp, mass, erosion or ulcer was noted. FL/FL barium swallow [id number] Impression: Normal esophagram.
== END 2021-10-18 09:28 | disposition home or self-care (01) ==
LOC: RAD 09:33
PROVIDERS: PCP Nurse Practitioner; Visit Provider Specialist
DX: R13.10 Dysphagia, unspecified (principal)
CPT/HCPCS: 74220

== ENCOUNTER → 2021-12-30 08:53 | Outpatient (BNVA) | payer MEDICARE, OTHER, SELFPAY | PROVIDERS: PCP Nurse Practitioner; Visit Provider Nurse Practitioner | DX: E11.9 Type 2 diabetes mellitus without complications (principal); Z79.84 Long term (current) use of oral hypoglycemic drugs; E03.8 Other specified hypothyroidism; I10 Essential (primary) hypertension | CPT/HCPCS: 80053; 80061; 83036; 84443 ==

== ENCOUNTER → 2022-01-01 10:01 | Outpatient (BNVA) | payer MEDICARE, OTHER, SELFPAY | PROVIDERS: PCP Nurse Practitioner; Visit Provider Nurse Practitioner | DX: M16.11 Unilateral primary osteoarthritis, right hip (principal); M25.551 Pain in right hip | CPT/HCPCS: 73502 ==

== ENCOUNTER → 2022-02-07 11:29 | Outpatient (BNVA) | payer MEDICARE, OTHER, SELFPAY | PROVIDERS: PCP Nurse Practitioner; Visit Provider Family Medicine | DX: F41.9 Anxiety disorder, unspecified (principal); R06.00 Dyspnea, unspecified; R60.9 Edema, unspecified | CPT/HCPCS: 80053; 84443; 85025 ==

== ENCOUNTER 2022-04-11 06:00 | Outpatient (RCR) | payer MEDICARE, OTHER, SELFPAY | END 2022-04-16 23:59 | disposition home or self-care (01) | LOC: APT 06:00 | PROVIDERS: PCP Nurse Practitioner; Visit Provider Orthopaedic Surgery | DX: Z47.1 Aftercare following joint replacement surgery (principal); Z96.653 Presence of artificial knee joint, bilateral; I89.0 Lymphedema, not elsewhere classified | CPT/HCPCS: 97110; 97161 ==

== ENCOUNTER 2022-04-17 06:00 | Outpatient (RCR) | payer MEDICARE, OTHER, SELFPAY | END 2022-05-16 23:59 | disposition home or self-care (01) | LOC: APT 06:00 | PROVIDERS: PCP Nurse Practitioner; Visit Provider Orthopaedic Surgery | DX: M25.561 Pain in right knee (principal); Z96.651 Presence of right artificial knee joint; I89.0 Lymphedema, not elsewhere classified; R53.1 Weakness | CPT/HCPCS: 97110 ==

== ENCOUNTER → 2022-05-02 09:16 | Outpatient (BNVA) | payer MEDICARE, OTHER, SELFPAY | PROVIDERS: PCP Family Medicine; Visit Provider Family Medicine | DX: E11.9 Type 2 diabetes mellitus without complications (principal); Z79.84 Long term (current) use of oral hypoglycemic drugs | CPT/HCPCS: 81000 ==

== ENCOUNTER → 2022-05-15 15:06 | Outpatient (BNVA) | payer MEDICARE, OTHER, SELFPAY | PROVIDERS: PCP Family Medicine; Visit Provider Podiatrist Foot & Ankle Surgery | DX: E11.9 Type 2 diabetes mellitus without complications (principal); L60.3 Nail dystrophy; M20.41 Other hammer toe(s) (acquired), right foot; M20.42 Other hammer toe(s) (acquired), left foot; Z79.84 Long term (current) use of oral hypoglycemic drugs | CPT/HCPCS: 73630; 99213; 99214 ==

== ENCOUNTER → 2022-05-26 08:00 | Outpatient (BNVA) | payer MEDICARE, OTHER, SELFPAY | PROVIDERS: PCP Family Medicine; Visit Provider Nurse Practitioner | DX: E03.8 Other specified hypothyroidism (principal); E11.9 Type 2 diabetes mellitus without complications; I10 Essential (primary) hypertension; Z79.84 Long term (current) use of oral hypoglycemic drugs; F41.9 Anxiety disorder, unspecified | CPT/HCPCS: 80053; 80061; 83036; 84443 ==

== ENCOUNTER 2022-06-16 06:00 | Outpatient (RCR) | payer MEDICARE, OTHER, SELFPAY | END 2022-06-16 23:55 | disposition home or self-care (01) | LOC: SPT 06:00 | PROVIDERS: PCP Family Medicine; Visit Provider Nurse Practitioner | DX: H81.313 Aural vertigo, bilateral (principal) | CPT/HCPCS: 95992; 97162 ==

== ENCOUNTER 2022-06-17 06:00 | Outpatient (RCR) | payer MEDICARE, OTHER, SELFPAY | END 2022-07-15 16:39 | disposition home or self-care (01) | LOC: SPT 06:00 | PROVIDERS: PCP Family Medicine; Visit Provider Nurse Practitioner | DX: H81.313 Aural vertigo, bilateral (principal) | CPT/HCPCS: 95992 ==

== ENCOUNTER 2022-07-05 18:42 | Emergency (ER) | payer MEDICARE, OTHER, SELFPAY ==
[2022-07-05 20:02] VITALS: BP 165/87; PULSE 94; RESP 19; TEMP 37.6; O2SAT 94; BMI 36.3
[2022-07-05 20:44] LABS: Influenza A by IFA negative (Negative); Influenza B by IFA negative (Negative)
--- NOTE | 2022-07-06 | PC.NURSE ---
pt c/o feeling like her heart is out of rhythm ekg completed and given to dr de la vega for review. no acute changes at this time.
--- NOTE | 2022-07-06 01:06 | XRR_ITS ---
PROCEDURE INFORMATION: Exam: XR Chest Exam date and time: 07/06/2022 2:46 AM Age: 82 years old Clinical indication: Cough; Additional info: Upper respiratory symptoms TECHNIQUE: Imaging protocol: Radiologic exam of the chest. Views: 1 view. COMPARISON: CR XR chest 1V portable [id number] 02/22/2021 12:46 PM FINDINGS: Lungs: No CHF/pulmonary edema. Visible lungs appear essentially clear. Pleural spaces: No visible pneumothorax. No definite pleural fluid. Heart/Mediastinum: Heart size appears upper range of normal. Bones/joints: No significant acute finding. XR/XR chest 1V portable [id number] IMPRESSION: 1. No definite pneumonia or CHF. 2. Other findings discussed above.
--- NOTE | 2022-07-06 01:07 | W.ED.URI ---
HPI - URI/Sore Throat General: Chief Complaint: Headache Stated Complaint: headache, ear pain, sore throat Time Seen by Provider: 07/06/22 00:43 History of Present Illness: Patient is a 82-year-old female comes to the ED with upper respiratory symptoms. Symptoms started yesterday. She is complaining of having bilateral ear pain, sore throat, nasal drainage and congestion and headache. Endorses having a fever but denies any chills or body aches. Denies being around any sick contacts. Headache has been going on now for several weeks and occurs when she lays her head down at night and goes to bed. She has never had a headache like this before. She rates her headache an 8 out of 10. Denies any neurological deficits or symptoms. Associated symptoms: Reports headache(s) and nasal congestion; Deny abdominal pain, chills, chest pain, diarrhea, fever(s), nausea or vomiting Review of Systems Const: Denies: fever(s), chills or fatigue Eyes: Denies: change in vision or eye discomfort ENMT: Reports: throat pain, nasal discharge and nasal congestion; Denies: odynophagia Card: Denies: chest pain, palpitations, edema, swelling of feet/ankles, dyspnea on exertion or orthopnea Resp: Reports: non-productive cough; Denies: dyspnea or productive cough GI: Denies: abdominal pain, nausea, vomiting, diarrhea, constipation or hematochezia : Denies: flank pain, dysuria or hematuria Musc: Denies: neck pain, back pain or extremity swelling Skin/Breast: Denies: rash or new lesions Neuro: Reports: headache(s); Denies: numbness in extremities or weakness in extremities PFSH ED PFSH: Medical History Adult onset hypothyroidism Anxiety Diabetes mellitus treated with oral medication Diverticulosis Environmental and seasonal allergies Essential (primary) hypertension Hyperlipidemia Surgical History H/O tubal ligation History of cataract both eyes in Sep.24 & 2021 with [facility] 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 Lanza [place], [place] Hx of angiography Hx of colonoscopy Status post left foot surgery Hammer toes left Family History Other Heart disease Hypertension Denies family history of Diabetes CAD (coronary artery disease) Clotting disorder Dementia Hyperlipidemia Psychiatric illness Chronic kidney disease (CKD) Suicide Anesthesia complication Bleeding disorder Family history of premature coronary artery disease Lung disease Cancer Stroke Social History Smoking and tobacco status: never smoked Second hand smoke exposure: No Smoking risk assessment/counseling performed?: No Alcohol intake: never Desire information about alcohol rehabilitation?: No Counseling given: No Desire information about substance/drug rehabilitation?: No Counseling given: No Adopted: No Caregiver/support person: No Lives independently: Yes Household members: none Housing: House Marital status: / Number of children: 4 service: No Current occupational status: retired Current occupational exposures/hazards: No Pets and animals: Yes History of recent travel: No Current gender identity: Female Physical Exam Const: COMMON NORMALS: no acute distress, patient oriented x3 and alert GENERAL APPEARANCE: cooperative and comfortable HENMT: COMMON NORMALS: normocephalic HEAD & SCALP: normocephalic MOUTH: Normal oral and palatal mucosa present THROAT: posterior oropharynx normal and uvula midline Neck/C-Spine: COMMON NORMALS: supple GENERAL: Yes normal visual inspection Resp: COMMON NORMALS: normal respiratory effort, No retractions, No use of accessory muscles and clear to auscultation bilaterally AUSCULTATION: clear to auscultation bilaterally Cardio: COMMON NORMALS: regular rate, regular rhythm, S1 normal heart sound present, S2 normal heart sound present, No gallops present (Cardio), No clicks present (Cardio), No murmurs present (Cardio) and Peripheral pulses 2+ throughout RATE: regular rate RHYTHM: regular rhythm HEART SOUNDS: S1 normal heart sound present and S2 normal heart sound present PERIPHERAL PULSES: Peripheral pulses 2+ throughout GI: COMMON NORMALS: Normal to inspection, nondistended, normoactive bowel sounds present, Soft to palpation, non-tender and no masses PALPATION: Yes Soft to palpation : COMMON NORMALS: Yes no CVA tenderness BLADDER/KIDNEY EXAM: Yes no CVA tenderness Back/Pelvis: COMMON NORMALS: no CVA tenderness Extremity: COMMON NORMALS: normal to inspection Neuro: COMMON NORMALS: patient oriented x3 SENSORIUM/ORIENTATION: Yes alert GAIT: Yes Normal gait present Skin: GENERAL SKIN EXAM: dry skin Course Vital Signs: Vital signs: Vital Signs Temperature 99.6 F 07/05/22 20:02 Pulse Rate 94 07/05/22 20:02 Respiratory Rate 19 H 07/05/22 20:02 Blood Pressure 165/87 07/05/22 20:02 Pulse Oximetry 94 07/05/22 20:02 Oxygen Delivery Me thod 07/05/22 20:02 MDM - URI/Sore Throat Medical Decision Making Patient is an 82-year-old female comes to the ED with upper respiratory symptoms. She also has a bad headache she has been having for the past 3 weeks and gets worse when she lays her head down at night. Denies any neurological symptoms or deficits. Vitals are stable. Exam is benign. Influenza negative. Chest x-ray shows no acute findings. Head CT showed no acute findings, but noted some findings of sinusitis.. Patient was given Toradol here in the ED and her symptoms improved. She was diagnosed with sinusitis and upper respiratory viral infection and discharged home with a prescription for an antibiotic. She also sent with a prescription for Flonase. Told to follow-up with her PCP in the next week for reevaluation. Return to ED precautions given. Patient understood and agreed with plan. Lab Data Radiology Impressions Chest X-Ray 07/06/22 01:06 IMPRESSION: 1. No definite pneumonia or CHF. 2. Other findings discussed above. Head CT 07/06/22 01:20 IMPRESSION: 1. No acute intracranial hemorrhage or mass effect. 2. No definite acute infarct by CT, see above. 3. Paranasal sinus findings as discussed above. 4. Other findings discussed above. Laboratory Results Influenza Type A Ag negative (Negative) 07/05/22 20:07 Influenza Type B Ag negative (Negative) 07/05/22 20:07 Discharge Plan Discharge Patient Disposition: Home Clinical Impression: Upper respiratory infection, viral Sinusitis Qualifiers: Sinusitis location: unspecified location Chronicity: acute Recurrence: not specified as recurrent Qualified Code(s): J01.90 - Acute sinusitis, unspecified Condition: Stable Prescriptions: New amoxicillin-pot clavulanate 500-125 mg tablet 1 tab PO BID 10 Days Qty: 20 0RF Flonase Allergy Relief 50 mcg/actuation spray,suspension 1 spray intranasal DAILY PRN (Reason: nasal congestion) Qty: 16 0RF Rx Instructions: administer into each nostril No Action furosemide [Lasix] 20 mg tablet 40 mg PO QAM PRN (Reason: edema) Qty: 180 0RF atorvastatin 20 mg tablet 20 mg PO DAILY Qty: 90 0RF calcium carbonate-vitamin D3 [Os-Jamin 500 + D3] 500 mg-15 mcg (600 unit) tablet 1 tab PO .2 times day Qty: 180 0RF carvedilol 6.25 mg tablet 6.25 mg PO BID Qty: 180 0RF levothyroxine 137 mcg tablet 137 mcg PO DAILY Qty: 90 0RF Rx Instructions: dose increase lisinopril 10 mg tablet 10 mg PO BID Qty: 180 0RF metformin 500 mg tablet extended release 24 hr 1,000 mg PO DAILY Qty: 180 0RF sertraline 50 mg tablet 50 mg PO DAILY Qty: 90 0RF potassium chloride 20 mEq tablet,ER particles/crystals 20 meq PO DAILY Qty: 90 0RF Glucosamine Daily Complex 1,500-400-100 mg-unit-mg Tablet 1 tab PO DAILY Aspir-81 81 mg PO DAILY Zyrtec 10 mg Tablet 10 mg PO DAILY cranberry extract 250 mg Tablet 250 mg PO DAILY Vitamin D3 25 mcg (1,000 unit) Tablet 25 mcg PO DAILY Glucosamine 2 tab PO DAILY Discharge Orders: Discharge ED (Routine); Ordered 07/06/22 Ordered By: Rudi Crawley Referrals: Rolando Mayorga, [Primary Care Provider] - Discharge Diet: Regular Discharge Activity: Increase activity as tolerated Patient Instructions: Sinusitis (ED), Upper Respiratory Infection - Adult Activity Restrictions/Additional Instructions: Follow-up with medical provider as directed in the next 5 to 7 days reevaluation. Take medications as prescribed. Return to the ER or your medical provider if condition worsens. Please read and understand discharge instructions. Thank you for choosing [facility] for your healthcare needs today. Please realize this is an emergency room and that we are providing you with a medical screening exam and this may not be complete and all inclusive of all the testing and or work up that you may need to determine your ailment or severity of your illness. It is very important that you follow up as instructed or that you return to the Emergency Department should you have concerns or if your condition changes or worsens in any way. Coding Level of Care Code ED Musical Instrument Mechanic for Anh Fwwojciech Exam Comprehensive
[2022-07-06] MEDS: ketorolac 30 mg/mL INJ IM (01:18)
--- NOTE | 2022-07-06 01:20 | CTR_ITS ---
PROCEDURE INFORMATION: Exam: CT Head Without Contrast Exam date and time: 07/06/2022 1:39 AM Age: 82 years old Clinical indication: Pain; Headache; Additional info: Headaches at night when laying down for past 3wks TECHNIQUE: Imaging protocol: Computed tomography of the head without contrast. Radiation optimization: All CT scans at this facility use at least one of these dose optimization techniques: automated exposure control; mA and/or kV adjustment per patient size (includes targeted exams where dose is matched to clinical indication); or iterative reconstruction. COMPARISON: CT head wo 04/04/2019 10:15 AM RADIATION DOSE METRICS: Total DLP (mGy-cm): 1200.39 FINDINGS: Brain: No acute intracranial hemorrhage or mass effect. There is very mild decreased attenuation in the periventricular white matter, likely from microvascular disease. No definite acute infarct by CT. MRI could be more sensitive/specific for detection, as clinically directed. Cerebral ventricles: Ventricle size is normal for age. Paranasal sinuses: Moderate mucosal thickening in the left ethmoid sinus. Mild mucosal thickening in the left maxillary sinus. Included paranasal sinuses otherwise appear essentially clear. Mastoid air cells: No significant acute finding. Bones/joints: No definite acute skull fracture. Soft tissues: No significant acute finding. Vasculature: Vascular calcifications in the internal carotid arteries. CT/CT head wo con* [id number] IMPRESSION: 1. No acute intracranial hemorrhage or mass effect. 2. No definite acute infarct by CT, see above. 3. Paranasal sinus findings as discussed above. 4. Other findings discussed above.
== END 2022-07-06 03:10 | disposition home or self-care (01) ==
PROVIDERS: Emergency Medicine; Emergency Provider Physician Assistant; PCP Family Medicine
DX: J06.9 Acute upper respiratory infection, unspecified (principal); J01.90 Acute sinusitis, unspecified
CPT/HCPCS: 70450; 71045; 87804; 96372; 99285; J1885

== ENCOUNTER → 2022-07-08 11:48 | Outpatient (BNVA) | payer MEDICARE, OTHER, SELFPAY | PROVIDERS: PCP Family Medicine; Visit Provider Nurse Practitioner Family | DX: R05.9 Cough, unspecified (principal) | CPT/HCPCS: 87426 ==

== ENCOUNTER → 2022-07-31 14:19 | Outpatient (BNVA) | payer MEDICARE, OTHER, SELFPAY | PROVIDERS: PCP Family Medicine; Visit Provider Podiatrist Foot & Ankle Surgery | DX: E11.9 Type 2 diabetes mellitus without complications (principal); L60.3 Nail dystrophy; Z79.84 Long term (current) use of oral hypoglycemic drugs; I73.9 Peripheral vascular disease, unspecified; M20.41 Other hammer toe(s) (acquired), right foot; M20.42 Other hammer toe(s) (acquired), left foot | CPT/HCPCS: 11721 ==

== ENCOUNTER 2022-08-13 14:05 | Outpatient (CLI) | payer MEDICARE, OTHER, SELFPAY ==
--- NOTE | 2022-08-13 14:13 | MM_ITS ---
WS: [id number] BILATERAL 3D TOMOSYNTHESIS DIGITAL SCREENING MAMMOGRAPHY WITH CAD CLINICAL INFORMATION: SCREENING HISTORY: Screening mammogram. No current complaints. COMPARISON: July 26, 2021 TECHNIQUE: Bilateral CC and MLO views. FINDINGS: Scattered fibroglandular densities bilaterally. Stable spiculated density in the medial LEFT breast. This is unchanged since 2014. No suspicious focal mass, asymmetry, calcifications, or architectural d istortion. No evidence of malignancy. A few incidental punctate calcifications. MM/[id number] IMPRESSION: BI-RADS: 2-Benign FOLLOW UP: 1 Year Follow-up Recommend return to annual screening mammography.
== END 2022-08-13 14:06 | disposition home or self-care (01) ==
LOC: RAD 14:05
PROVIDERS: PCP Family Medicine; Visit Provider Internal Medicine
DX: Z12.31 Encounter for screening mammogram for malignant neoplasm of breast (principal)
CPT/HCPCS: 77063; 77067

== ENCOUNTER → 2022-08-19 08:10 | Outpatient (BNVA) | payer MEDICARE, OTHER, SELFPAY | PROVIDERS: PCP Family Medicine; Visit Provider Family Medicine | DX: F41.9 Anxiety disorder, unspecified (principal); E11.9 Type 2 diabetes mellitus without complications; Z79.84 Long term (current) use of oral hypoglycemic drugs; E78.5 Hyperlipidemia, unspecified; I10 Essential (primary) hypertension; E55.9 Vitamin D deficiency, unspecified; E03.8 Other specified hypothyroidism | CPT/HCPCS: 80053; 80061; 82306; 83036; 84443 ==

== ENCOUNTER → 2022-09-03 11:02 | Outpatient (BNVA) | payer MEDICARE, OTHER, SELFPAY | PROVIDERS: PCP Family Medicine; Visit Provider Emergency Medicine | DX: S49.91XA Unspecified injury of right shoulder and upper arm, initial encounter (principal); X58.XXXA Exposure to other specified factors, initial encounter; M19.011 Primary osteoarthritis, right shoulder | CPT/HCPCS: 73030 ==

== ENCOUNTER → 2022-10-21 09:57 | Outpatient (BNVA) | payer MEDICARE, OTHER, SELFPAY | PROVIDERS: PCP Family Medicine; Referring Provider Family Medicine; Visit Provider Dermatology | DX: D22.39 Melanocytic nevi of other parts of face (principal) | CPT/HCPCS: 88305 ==

== ENCOUNTER → 2022-11-18 11:27 | Outpatient (BNVA) | payer MEDICARE, OTHER, SELFPAY | PROVIDERS: PCP Family Medicine; Visit Provider Podiatrist Foot & Ankle Surgery | DX: I73.9 Peripheral vascular disease, unspecified (principal); E11.9 Type 2 diabetes mellitus without complications; Z79.84 Long term (current) use of oral hypoglycemic drugs; L60.3 Nail dystrophy; M20.41 Other hammer toe(s) (acquired), right foot; M20.42 Other hammer toe(s) (acquired), left foot | CPT/HCPCS: 11056; 11721 ==

== ENCOUNTER → 2023-01-29 14:43 | Outpatient (BNVA) | payer MEDICARE, OTHER, SELFPAY | PROVIDERS: PCP Family Medicine; Visit Provider Nurse Practitioner Family | DX: L21.8 Other seborrheic dermatitis (principal); B35.3 Tinea pedis; I87.2 Venous insufficiency (chronic) (peripheral); L85.3 Xerosis cutis; L57.0 Actinic keratosis; L82.0 Inflamed seborrheic keratosis | CPT/HCPCS: 17000; 17003; 17110; 99214 ==

== ENCOUNTER → 2023-02-03 10:45 | Outpatient (BNVA) | payer MEDICARE, OTHER, SELFPAY | PROVIDERS: PCP Family Medicine; Visit Provider Podiatrist Foot & Ankle Surgery | DX: E11.9 Type 2 diabetes mellitus without complications (principal); L60.3 Nail dystrophy; L84 Corns and callosities; I73.9 Peripheral vascular disease, unspecified; M20.42 Other hammer toe(s) (acquired), left foot; M20.41 Other hammer toe(s) (acquired), right foot; Z79.84 Long term (current) use of oral hypoglycemic drugs | CPT/HCPCS: 11056; 11721; 99213 ==

== ENCOUNTER → 2023-02-11 10:21 | Outpatient (BNVA) | payer MEDICARE, OTHER, SELFPAY | PROVIDERS: PCP Family Medicine; Visit Provider Family Medicine | DX: E55.9 Vitamin D deficiency, unspecified (principal); E11.9 Type 2 diabetes mellitus without complications; F41.9 Anxiety disorder, unspecified; E03.8 Other specified hypothyroidism; L84 Corns and callosities; Z79.84 Long term (current) use of oral hypoglycemic drugs | CPT/HCPCS: 80053; 80061; 82306; 82607; 83036; 84443 ==

== ENCOUNTER 2023-03-19 11:40 | Outpatient (CLI) | payer MEDICARE, OTHER, SELFPAY ==
--- NOTE | 2023-03-19 12:22 | US_ITS ---
WS: [id number] LEFT 3D TOMOSYNTHESIS DIGITAL MAMMOGRAPHY WITH CAD CLINICAL INFORMATION: N63.0 - Unspecified lump in unspecified breast HISTORY: Palpable LEFT breast lump COMPARISON: August 13, 2022 TECHNIQUE: 3 views of the left breast were obtained. FINDINGS: Scattered fibroglandular densities of the left breast. Palpable marker 9:00 position 5 cm from the ni pple anterior depth. Slightly spiculated 5.5 mm asymmetric density in this location. Recommend ultras ound for further evaluation. Additional stable spiculated density in the medial LEFT breast unchanged since 2014. A few incidental punctate calcifications. ULTRASOUND BREAST LEFT TECHNIQUE: Ultrasound left breast focused area of concern. CLINICAL INFORMATION: N63.0 - Unspecified lump in unspecified breast FINDINGS: Ultrasound LEFT breast at the 9:00 position 5 cm from the nipple in the area of palpable concern. Sha dowing hypoechoic lesion taller than wide is nonspecific measuring 1.7 x 1.0 CM. Recommend further ev aluation with ultrasound-guided biopsy. US/US breast LT limited* [id number] BI-RADS: 4-Suspicious Finding-Biopsy Should Be Considered FOLLOW UP: US Guided Biopsy Recommended Recommend ultrasound-guided biopsy for further evaluation
--- NOTE | 2023-03-19 13:00 | MM_ITS ---
WS: [id number] LEFT 3D TOMOSYNTHESIS DIGITAL MAMMOGRAPHY WITH CAD CLINICAL INFORMATION: N63.0 - Unspecified lump in unspecified breast HISTORY: Palpable LEFT breast lump COMPARISON: August 13, 2022 TECHNIQUE: 3 views of the left breast were obtained. FINDINGS: Scattered fibroglandular densities of the left breast. Palpable marker 9:00 position 5 cm from the ni pple anterior depth. Slightly spiculated 5.5 mm asymmetric density in this location. Recommend ultras ound for further evaluation. Additional stable spiculated density in the medial LEFT breast unchanged since 2014. A few incidental punctate calcifications. ULTRASOUND BREAST LEFT TECHNIQUE: Ultrasound left breast focused area of concern. CLINICAL INFORMATION: N63.0 - Unspecified lump in unspecified breast FINDINGS: Ultrasound LEFT breast at the 9:00 position 5 cm from the nipple in the area of palpable concern. Sha dowing hypoechoic lesion taller than wide is nonspecific measuring 1.7 x 1.0 CM. Recommend further ev aluation with ultrasound-guided biopsy. MM/[place] [id number] BI-RADS: 4-Suspicious Finding-Biopsy Should Be Considered FOLLOW UP: US Guided Biopsy Recommended Recommend ultrasound-guided biopsy for further evaluation
== END 2023-03-19 11:41 | disposition home or self-care (01) ==
PROVIDERS: PCP Family Medicine; Visit Provider Family Medicine
DX: N63.25 Unspecified lump in the left breast, overlapping quadrants (principal)
CPT/HCPCS: 76642; 77061; G0279

== ENCOUNTER → 2023-04-06 10:29 | Outpatient (BNVA) | payer MEDICARE, OTHER, SELFPAY | PROVIDERS: PCP Family Medicine; Visit Provider Podiatrist Foot & Ankle Surgery | DX: E11.9 Type 2 diabetes mellitus without complications (principal); Z79.84 Long term (current) use of oral hypoglycemic drugs; L60.3 Nail dystrophy; M20.41 Other hammer toe(s) (acquired), right foot; M20.42 Other hammer toe(s) (acquired), left foot; I73.9 Peripheral vascular disease, unspecified; L84 Corns and callosities | CPT/HCPCS: 11056; 11721 ==

== ENCOUNTER 2023-04-08 10:38 | Outpatient (CLI) | payer MEDICARE, OTHER, SELFPAY ==
--- NOTE | 2023-04-08 10:53 | US_ITS ---
WS: [id number] ULTRASOUND-GUIDED LEFT BREAST BIOPSY DIAGNOSTIC MAMMOGRAM, LEFT, 2 VIEW. HISTORY: LEFT breast mass, 3:00. COMPARISON: 03/19/2023 Procedure, risks and complications are explained to the patient. Medications are reviewed. Consent is obtained. The mass in the LEFT breast is localized with ultrasound. Mass localizes to 3:00, 5 cm from the nippl e. Skin is cleansed with ChloraPrep and anesthetized with 1% buffered lidocaine. Small dermatome is m nikky. Under sterile conditions mass is biopsied with a 14-gauge Achieve needle. Multiple core biopsies are performed. Material placed in formalin and sent to pathology for review. No complications encoun tered. Breast tissue marker ([employer] ultrasound enhanced ribbon): Single. Patient left the radiology suite with no complications. Patient is instructed to return to [facility] or [facility] with any concerns. Two-view mammogram was obtained post biopsy to ensure the biopsy corresponds to the spiculated lesion at 3:00. Previously marked as 9:00 on 03/19/2023. Additional scanning and imaging prior to the biopsy demonstrated masses within the 3:00 axis and not the 9:00 axis as previously indicated. This mass amador s not correspond to the palpable abnormality. No abnormality noted in the palpable region. IMPRESSION: 1. Uncomplicated core needle biopsy LEFT breast mass at 3:00. Note: Spiculated mass in the LEFT breast at 3:00 is highly suspicious for malignancy. This could be a n area of fibrosis and fat necrosis. Often times these could not be differentiated by imaging. Consid er surgical consultation and possible lumpectomy or 6-month diagnostic LEFT mammogram and ultrasound follow-up if patient request. 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 No malignancy. RECOMMENDATION: Consider surgical consultation.
--- NOTE | 2023-04-08 12:10 | MM_ITS ---
WS: [id number] ULTRASOUND-GUIDED LEFT BREAST BIOPSY DIAGNOSTIC MAMMOGRAM, LEFT, 2 VIEW. HISTORY: LEFT breast mass, 3:00. COMPARISON: 03/19/2023 Procedure, risks and complications are explained to the patient. Medications are reviewed. Consent is obtained. The mass in the LEFT breast is localized with ultrasound. Mass localizes to 3:00, 5 cm from the nippl e. Skin is cleansed with ChloraPrep and anesthetized with 1% buffered lidocaine. Small dermatome is m nikky. Under sterile conditions mass is biopsied with a 14-gauge Achieve needle. Multiple core biopsies are performed. Material placed in formalin and sent to pathology for review. No complications encoun tered. Breast tissue marker ([employer] ultrasound enhanced ribbon): Single. Patient left the radiology suite with no complications. Patient is instructed to return to [facility] or [facility] with any concerns. Two-view mammogram was obtained post biopsy to ensure the biopsy corresponds to the spiculated lesion at 3:00. Previously marked as 9:00 on 03/19/2023. Additional scanning and imaging prior to the biopsy demonstrated masses within the 3:00 axis and not the 9:00 axis as previously indicated. This mass amador s not correspond to the palpable abnormality. No abnormality noted in the palpable region. IMPRESSION: 1. Uncomplicated core needle biopsy LEFT breast mass at 3:00. Note: Spiculated mass in the LEFT breast at 3:00 is highly suspicious for malignancy. This could be a n area of fibrosis and fat necrosis. Often times these could not be differentiated by imaging. Consid er surgical consultation and possible lumpectomy or 6-month diagnostic LEFT mammogram and ultrasound follow-up if patient request. 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 No malignancy. RECOMMENDATION: Consider surgical consultation.
== END 2023-04-08 10:39 | disposition home or self-care (01) ==
PROVIDERS: PCP Family Medicine; Visit Provider Family Medicine
DX: N60.32 Fibrosclerosis of left breast; R92.8 Other abnormal and inconclusive findings on diagnostic imaging of breast; N63.25 Unspecified lump in the left breast, overlapping quadrants
CPT/HCPCS: 19083; 77061; 88305; G0279

== ENCOUNTER → 2023-05-07 09:36 | Outpatient (BNVA) | payer MEDICARE, OTHER, SELFPAY | PROVIDERS: PCP Family Medicine; Referring Provider Family Medicine; Visit Provider Surgery | DX: N63.0 Unspecified lump in unspecified breast (principal) | CPT/HCPCS: 99204 ==

== ENCOUNTER → 2023-05-13 10:55 | Outpatient (BNVA) | payer MEDICARE, OTHER, SELFPAY | PROVIDERS: PCP Family Medicine; Visit Provider Nurse Practitioner Family | DX: L21.8 Other seborrheic dermatitis (principal); D48.5 Neoplasm of uncertain behavior of skin; L57.0 Actinic keratosis; B07.8 Other viral warts; L82.0 Inflamed seborrheic keratosis; L81.4 Other melanin hyperpigmentation; L82.1 Other seborrheic keratosis; I87.2 Venous insufficiency (chronic) (peripheral); B35.3 Tinea pedis | CPT/HCPCS: 11102; 17000; 17110; 99214 ==

== ENCOUNTER → 2023-06-03 09:11 | Outpatient (BNVA) | payer MEDICARE, OTHER, SELFPAY | PROVIDERS: PCP Family Medicine; Visit Provider Dermatology | DX: C44.619 Basal cell carcinoma of skin of left upper limb, including shoulder (principal) | CPT/HCPCS: 11603; 12032 ==

== ENCOUNTER → 2023-06-08 10:28 | Outpatient (BNVA) | payer MEDICARE, OTHER, SELFPAY | PROVIDERS: PCP Family Medicine; Visit Provider Podiatrist Foot & Ankle Surgery | DX: E11.9 Type 2 diabetes mellitus without complications (principal); Z79.84 Long term (current) use of oral hypoglycemic drugs; L60.3 Nail dystrophy; I73.9 Peripheral vascular disease, unspecified; L84 Corns and callosities | CPT/HCPCS: 11056; 11721 ==

== ENCOUNTER 2023-06-11 08:16 | Day surgery (SDC) | payer MEDICARE, OTHER, SELFPAY ==
[2023-06-11] VITALS (10 sets, daily range): BP systolic 130–162; BP diastolic 70–102; PULSE 71–85; RESP 9–19; TEMP 36.6–36.8; O2SAT 94–100; BMI 38.0
--- NOTE | 2023-06-11 | US_ITS ---
WS: [id number] ULTRASOUND-GUIDED LEFT BREAST BIOPSY CLINICAL INFORMATION: L Breast Biopsy COMPARISON: 04/08/2023 FINDINGS: The procedure including risks, benefits, and complications were discussed with the patient who agreed to proceed. Using sterile technique patient was prepped and draped in the usual sterile fashion. Aft er 1% lidocaine utilizing real-time ultrasound guidance a 7 cm Kopan's needle was advanced into the L EFT breast lesion at the 3 o'clock position 5 cm from the nipple. Wire was deployed in good position. No immediate complications. Surgical specimen demonstrates gross total resection with intact localization wire. Pathology demonstrates: 1. Breast parenchyma with fat necrosis, associated histiocytes, inflammation, and focal adjacent mult i nucleated giant cell reaction. 2. Background breast parenchyma demonstrates patchy areas of fibrocystic changes, ductal ectasia, usu al ductal hyperplasia, apocrine metaplasia, and fibrosis 3. No atypia or malignancy. IMPRESSION: 1. Uncomplicated ultrasound-guided wire localization 2. Surgical specimen demonstrates gross total resection with intact localization wire 3. Pathology demonstrates no atypia or malignancy. US/US surgical specimen BI-RADS: 3-Probably Benign FOLLOW UP: 6 Month Follow-up Recommend 6-month follow-up LEFT breast diagnostic mammography and ultrasound p ostlumpectomy
--- NOTE | 2023-06-11 08:39 | ECG_ITS ---
[facility] Test Date: 2023-06-11 Pat Name: Shanique Wang Department: Room: Gender: Female [employer] J[employer] Supervisor: : 1940 Requested By: Jose Eduardo Loco Order Number: [id number] Vane MD: Jenny James M.D. Measurements Intervals [place] Rate: 70 P: 230 MA: 147 QRS: 27 QRSD: 104 T: 58 QT: 383 QTc: 413 Interpretive Statements SINUS RHYTHM Compared to ECG 04/09/2019 07:37:45 Atrial fibrillation no longer present Electronically Signed On 06-11-2023 11:32:48 CDT by Jenny James M.D. [id number]
--- NOTE | 2023-06-11 08:57 | US_ITS ---
WS: [id number] ULTRASOUND-GUIDED LEFT BREAST BIOPSY CLINICAL INFORMATION: L Breast Biopsy COMPARISON: 04/08/2023 FINDINGS: The procedure including risks, benefits, and complications were discussed with the patient who agreed to proceed. Using sterile technique patient was prepped and draped in the usual sterile fashion. Aft er 1% lidocaine utilizing real-time ultrasound guidance a 7 cm Kopan's needle was advanced into the L EFT breast lesion at the 3 o'clock position 5 cm from the nipple. Wire was deployed in good position. No immediate complications. Surgical specimen demonstrates gross total resection with intact localization wire. Pathology demonstrates: 1. Breast parenchyma with fat necrosis, associated histiocytes, inflammation, and focal adjacent mult i nucleated giant cell reaction. 2. Background breast parenchyma demonstrates patchy areas of fibrocystic changes, ductal ectasia, usu al ductal hyperplasia, apocrine metaplasia, and fibrosis 3. No atypia or malignancy. IMPRESSION: 1. Uncomplicated ultrasound-guided wire localization 2. Surgical specimen demonstrates gross total resection with intact localization wire 3. Pathology demonstrates no atypia or malignancy. US/[place] [id number] BI-RADS: 3-Probably Benign FOLLOW UP: 6 Month Follow-up Recommend 6-month follow-up LEFT breast diagnostic mammography and ultrasound p ostlumpectomy
--- NOTE | 2023-06-11 09:12 | ANES.PREANE2 ---
Pre-Anesthetic Assessment Height/Weight: Height 1.63 m Weight 100.698 kg Temp Pulse Resp BP Pulse Ox O2 Del Method 98.3 F 80 16 162/102 95 Room Air 06/11/23 08:40 06/11/23 08:40 06/11/23 08:40 06/11/23 08:40 06/11/23 08:40 06/11/23 08:40 Operation Date: 06/11/23 10:00 [place] [id number] left breast lumpectomy with needle insertion and radiologic correlationper Dr. Burciaga no radiotracer injection and no node biopsy N63.0(Left) - Lloyd Burciaga DO Familial anesthetic complications: Delayed awakening Was Beta Alvaro taken within 24 hours: Yes Was Clonidine taken within 24 hours: N/A Last intake: Intake Last Liquid Date 06/10/23 Last Liquid Time 21:00 Last Solid Date 06/10/23 Last Solid Time 17:00 Social No alcohol and No tobacco Exam alert, oriented x 3, clear to auscultation bilaterally and regular rate & rhythm Airway Submandibular: within normal limits Cervical ROM: within normal limits Mallampati: Class II Dentition: false CV/HEM Murmur (Mild MR/TR, elevated RH pressures) and Peripheral Vascular Disease Metabolic Diabetes Mellitus, Hyperlipidemia, Morbid Obesity and Thyroid Disease Neuropsych Anxiety and Depression Anesthetic Plan ASA status: 3 Anesthesia: General Medications/Allergies Home Medications Medication Instructions Recorded Confirmed Last Taken Type Aspir-81 81 mg PO DAILY 02/22/21 06/10/23 06/09/23 History Glucosamine 2 tab PO DAILY 02/22/21 06/10/23 06/10/23 History cetirizine 10 mg tablet (Zyrtec) 10 mg PO DAILY 02/22/21 06/10/23 06/10/23 History cholecalciferol (vitamin D3) 25 25 mcg PO DAILY 02/22/21 06/10/23 06/10/23 History mcg (1,000 unit) tablet (Vitamin D3) calcium carbonate 500 mg-vitamin 1 tab PO .2 times day #180 tabs 05/28/22 06/10/23 06/10/23 Rx D3 15 mcg (600 unit) tablet (Os-Jamin 500 + D3) fluticasone propionate 50 1 spray intranasal DAILY PRN nasal 07/06/22 06/10/23 Unknown Rx mcg/actuation nasal congestion #16 grams spray,suspension (Flonase Allergy Relief) ibuprofen 600 mg tablet 600 mg PO Q8H PRN pain #60 tabs 09/03/22 06/10/23 06/03/23 Rx ketoconazole 2 % topical cream 1 applic topical BID #30 grams 10/21/22 06/10/23 Unknown Rx triamcinolone acetonide 0.1 % 1 applic topical BID #15 grams 10/23/22 06/10/23 Unknown Rx topical ointment furosemide 20 mg tablet (Lasix) 40 mg PO QAM PRN edema #180 tabs 02/20/23 06/11/23 06/10/23 Rx losartan 25 mg tablet 25 mg PO DAILY 05/07/23 06/10/23 06/10/23 History carvedilol 6.25 mg tablet 6.25 mg PO BID #180 tabs 05/18/23 06/11/23 06/11/23 06:00 Rx levothyroxine 137 mcg tablet 137 mcg PO DAILY #90 tabs 05/18/23 06/11/23 06/11/23 06:00 Rx metformin 500 mg tablet,extended 1,000 mg PO DAILY #180 tabs 05/18/23 06/10/23 06/10/23 Rx release 24 hr potassium chloride 20 mEq 20 meq PO DAILY #90 tabs 05/18/23 06/10/23 06/10/23 Rx tablet,extended release(part/cryst) sertraline 50 mg tablet 50 mg PO DAILY #90 tabs 05/18/23 06/10/23 06/10/23 Rx atorvastatin 20 mg tablet 20 mg PO DAILY #90 tabs 05/20/23 06/10/23 06/10/23 Rx ketoconazole 2 % shampoo 1 applic topical DAILY 06/11/23 06/11/23 Unknown History Allergies Allergy/AdvReac Type Severity Reaction Status Date / Time rosuvastatin [From Crestor] Allergy ADR-Muscle Verified 06/11/23 08:28 Pain PFSH Anesthesia Medical History Adult onset hypothyroidism Anxiety Diabetes mellitus treated with oral medication Diverticulosis Environmental and seasonal allergies Essential (primary) hypertension Hyperlipidemia Surgical History H/O tubal ligation History of cataract both eyes in Sep.24 & 2021 with [facility] 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 Lanza [place], [place] Hx of angiography Hx of colonoscopy Status post left foot surgery Hammer toes left Family History Other Heart disease Hypertension Denies family history of Diabetes CAD (coronary artery disease) Clotting disorder Dementia Hyperlipidemia Psychiatric illness Chronic kidney disease (CKD) Suicide Anesthesia complication Bleeding disorder Family history of premature coronary artery disease Lung disease Cancer Stroke Social History Smoking and tobacco/nicotine status: never used tobacco/nicotine Second hand smoke exposure: No Alcohol intake: never Substance/Drug Use: never Adopted: No Caregiver/support person: No Lives independently: Yes Household members: none Housing: House Marital status: / Number of children: 4 service: No Current occupational status: retired Current occupational exposures/hazards: No Pets and animals: Yes Do you think of yourself as: Straight/Heterosexual Current gender identity: Female Data Anesthesia Cardiac Studies: No Data to Display
--- NOTE | 2023-06-11 09:12 | SUR.PREOP ---
0912 gone to ultrasound via stretcher for needle localization.
[2023-06-11 09:25] LABS: Anion Gap 13.3 (5-19); Blood Urea Nitrogen 14 mg/dL (8-23); Calcium 9.4 mg/dL (8.5-10.5); Carbon Dioxide 28 mmol/L (22-29); Chloride 106 mmol/L (98-107); Glucose 134 mg/dL (65-115); Osmolality Calculated 298 mOsm/kg (285-295); Potassium 4.3 mmol/L (3.5-5.1); Sodium 143 mmol/L (136-145)
[2023-06-11] MEDS: sodium chloride 0.9% 1,000 ML 30 ML IV (09:53)
--- NOTE | 2023-06-11 10:24 | PM.HP ---
Providers/Chief Complaint Primary Care Provider: Rolando Mayorga DO Chief Complaint: N63.0 History of Present Illness Shanique Wang is a 82 year old female Review of Systems General: Reports: 10 or more systems reviewed and unremarkable except in HPI and below Medications/Allergies Home Medications Medication Instructions Recorded Confirmed Last Taken Type Aspir-81 81 mg PO DAILY 02/22/21 06/10/23 06/09/23 History Glucosamine 2 tab PO DAILY 02/22/21 06/10/23 06/10/23 History cetirizine 10 mg tablet (Zyrtec) 10 mg PO DAILY 02/22/21 06/10/23 06/10/23 History cholecalciferol (vitamin D3) 25 25 mcg PO DAILY 02/22/21 06/10/23 06/10/23 History mcg (1,000 unit) tablet (Vitamin D3) calcium carbonate 500 mg-vitamin 1 tab PO .2 times day #180 tabs 05/28/22 06/10/23 06/10/23 Rx D3 15 mcg (600 unit) tablet (Os-Jamin 500 + D3) fluticasone propionate 50 1 spray intranasal DAILY PRN nasal 07/06/22 06/10/23 Unknown Rx mcg/actuation nasal congestion #16 grams spray,suspension (Flonase Allergy Relief) ibuprofen 600 mg tablet 600 mg PO Q8H PRN pain #60 tabs 09/03/22 06/10/23 06/03/23 Rx ketoconazole 2 % topical cream 1 applic topical BID #30 grams 10/21/22 06/10/23 Unknown Rx triamcinolone acetonide 0.1 % 1 applic topical BID #15 grams 10/23/22 06/10/23 Unknown Rx topical ointment furosemide 20 mg tablet (Lasix) 40 mg PO QAM PRN edema #180 tabs 02/20/23 06/11/23 06/10/23 Rx losartan 25 mg tablet 25 mg PO DAILY 05/07/23 06/10/23 06/10/23 History carvedilol 6.25 mg tablet 6.25 mg PO BID #180 tabs 05/18/23 06/11/23 06/11/23 06:00 Rx levothyroxine 137 mcg tablet 137 mcg PO DAILY #90 tabs 05/18/23 06/11/23 06/11/23 06:00 Rx metformin 500 mg tablet,extended 1,000 mg PO DAILY #180 tabs 05/18/23 06/10/23 06/10/23 Rx release 24 hr potassium chloride 20 mEq 20 meq PO DAILY #90 tabs 05/18/23 06/10/23 06/10/23 Rx tablet,extended release(part/cryst) sertraline 50 mg tablet 50 mg PO DAILY #90 tabs 05/18/23 06/10/23 06/10/23 Rx atorvastatin 20 mg tablet 20 mg PO DAILY #90 tabs 05/20/23 06/10/23 06/10/23 Rx ketoconazole 2 % shampoo 1 applic topical DAILY 06/11/23 06/11/23 Unknown History Allergies Allergy/AdvReac Type Severity Reaction Status Date / Time rosuvastatin [From Crestor] Allergy ADR-Muscle Verified 06/11/23 08:28 Pain PFSH Acute PFSH: Medical History Adult onset hypothyroidism Anxiety Diabetes mellitus treated with oral medication Diverticulosis Environmental and seasonal allergies Essential (primary) hypertension Hyperlipidemia Surgical History H/O tubal ligation History of cataract both eyes in Sep.24 & 2021 with [facility] 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 Lanza [facility], [place] Hx of angiography Hx of colonoscopy Status post left foot surgery Hammer toes left Family History Other Heart disease Hypertension Denies family history of Diabetes CAD (coronary artery disease) Clotting disorder Dementia Hyperlipidemia Psychiatric illness Chronic kidney disease (CKD) Suicide Anesthesia complication Bleeding disorder Family history of premature coronary artery disease Lung disease Cancer Stroke Social History Smoking and tobacco/nicotine status: never used tobacco/nicotine Second hand smoke exposure: No Alcohol intake: never Substance/Drug Use: never Adopted: No Caregiver/support person: No Lives independently: Yes Household members: none Housing: House Marital status: / Number of children: 4 service: No Current occupational status: retired Current occupational exposures/hazards: No Pets and animals: Yes Do you think of yourself as: Straight/Heterosexual Current gender identity: Female Vitals/I&O/Wt Last Vital Signs Temp 98.3 F 06/11/23 08:40 Pulse 80 06/11/23 08:40 Resp 16 06/11/23 08:40 BP 162/102 06/11/23 08:40 Pulse Ox 95 06/11/23 08:40 O2 Del Method Room Air 06/11/23 08:40 Weight last 48 hrs Weight 222 lb Data 06/11/23 08:43 A&P Assessment and plan (1) Breast lump: Plan Left breast lumpectomy with needle insertion and radiologic correlation The risks and benefits of the procedure, including but not limited to, bleeding, infection, scar, numbness, pain, damage to surrounding structures including nerves arteries and veins, positive margins requiring additional surgery, recurrence, were explained to the patient.? She was understanding the risks and wished to proceed. Attestations Medical Necessity Statement*: home Coding Level of Care Code Acute Code for Chg Fwd Diagnoses Breast lump N63.0
[2023-06-11] MEDS: ceFAZolin 2,000 MG in sodium chloride 0.9% (plus) 50 ML 100 MG IV (10:43)
[2023-06-11] MEDS: lidocaine-epi 2% 20 mL INJ INJECTION (11:07)
--- NOTE | 2023-06-11 11:21 | PM.OP ---
Operative Report Date of procedure: June 11, 2023 Pre-op diagnosis: Left breast mass Post-op diagnosis: same Procedure done: Left breast lumpectomy Implants: Surgicel Specimens removed/disposition: Left breast lumpectomy-double stitch amaya anterior, short stitch superior and wire lateral Surgeon: Lloyd Burciaga DO Anesthesia: General Estimated blood loss (mL): 5 Complications: None apparent Brief History: This a very pleasant 82-year-old female was found to have a left breast mass. Biopsy with ultrasound did not reveal malignancy but had architecture somewhat concerning radiology recommended surgical excision. Left rest of ectomy was indicated. The risk benefits were explained and documented. Procedure: The patient was brought back into the operating room. She was placed on the OR table in the supine position. The left breast and axilla were inspected prepped and draped in usual sterile fashion. An LMA was placed by the department of anesthesia. A timeout was performed. All present were in agreement. A 4 cm incision was made transversely on the left breast, 3 o'clock position, over the mass. A wire was placed by radiology previously to locate the mass. Dissection was carried down with electrocautery through the fascia and around the mass. The mass was removed and a double stitch was placed to kedar anterior, short stitch placed to kedar superior and the wire marked lateral. Hemostasis was achieved with electrocautery and a piece of Surgicel. Specimen was sent to radiology who said the clip and wire were surrounded by adequate tissue margins. The dermis was approximated with 3-0 Vicryl. The skin was closed with 4-0 Vicryl in a subcuticular and running fashion. Dermabond was applied. Patient tolerated the procedure well.
--- NOTE | 2023-06-11 11:26 | SUR.PREOP ---
1000 PT BACK FROM RADIOLOGY VIA STRETCHER
--- NOTE | 2023-06-11 12:19 | ANE.PACU2 ---
Inpatient post-anesthesia follow up: Airway intact: Yes Vital signs: Temperature 98.2 F Pulse Rate 76 Respiratory Rate 11 Blood Pressure 151/76 Pulse Oximetry 95 Oxygen Delivery Me thod Room Air Oxygen Flow Rate 6 Fraction of Inspir ed Oxygen Hydration adequate: Yes Nausea and vomiting: No Pain level: 2 Mental status: Baseline
[2023-06-11 12:56] LABS: Glucose Point of Care 125 mg/dL (70-110)
== END 2023-06-11 13:15 | disposition home or self-care (01) ==
PROVIDERS: Anesthesiology; PCP Family Medicine; Visit Provider Surgery
PROC: (CPT 19120; principal; 2023-06-11 10:00)
DX: N63.25 Unspecified lump in the left breast, overlapping quadrants (principal); E11.9 Type 2 diabetes mellitus without complications; E78.5 Hyperlipidemia, unspecified; E66.01 Morbid (severe) obesity due to excess calories; Z68.38 Body mass index [BMI] 38.0-38.9, adult; Z79.82 Long term (current) use of aspirin; Z79.84 Long term (current) use of oral hypoglycemic drugs; I10 Essential (primary) hypertension
CPT/HCPCS: 19301; 19285; 36415; 36416; 80048; 82962; 88307; 93005; C1889; J0131; J0690; J1100; J2405; J2704; J3010; J3490; J7030

== ENCOUNTER → 2023-06-17 10:16 | Outpatient (BNVA) | payer MEDICARE, OTHER, SELFPAY | PROVIDERS: PCP Family Medicine; Visit Provider Dermatology | DX: Z48.02 Encounter for removal of sutures (principal) | CPT/HCPCS: 99212 ==

== ENCOUNTER → 2023-06-23 10:16 | Outpatient (BNVA) | payer MEDICARE, OTHER, SELFPAY | PROVIDERS: PCP Family Medicine; Visit Provider Surgery | DX: Z98.890 Other specified postprocedural states (principal); K92.1 Melena; Z80.0 Family history of malignant neoplasm of digestive organs | CPT/HCPCS: 99213 ==

== ENCOUNTER 2023-07-24 06:56 | Day surgery (SDC) | payer MEDICARE, OTHER, SELFPAY ==
[2023-07-24 07:15] VITALS: BP 150/83; PULSE 82; RESP 18; TEMP 36.1; O2SAT 93
[2023-07-24] MEDS: sodium chloride 0.9% 1,000 ML 30 ML IV (07:30)
[2023-07-24 07:32] LABS: Glucose Point of Care 127 mg/dL (70-110)
--- NOTE | 2023-07-24 07:50 | ANES.PREANE2 ---
Pre-Anesthetic Assessment Height/Weight: Height 1.63 m Weight 99.79 kg Temp Pulse Resp BP Pulse Ox O2 Del Method 97.0 F L 82 18 150/83 93 Room Air 07/24/23 07:15 07/24/23 07:15 07/24/23 07:15 07/24/23 07:15 07/24/23 07:15 07/24/23 07:15 Operation Date: 07/24/23 08:00 Proposed Procedures p Colonoscopy(Not Applicable) - Lloyd Burciaga DO Last intake: Intake Last Liquid Date 07/23/23 Last Liquid Time 22:00 Last Solid Date 07/22/23 Last Solid Time 17:00 Social No alcohol and No tobacco Exam alert, oriented x 3, clear to auscultation bilaterally and regular rate & rhythm Airway Submandibular: within normal limits Cervical ROM: within normal limits Mallampati: Class I History/ROS No significant history except as noted and No significant complaints Pulmonary Othopnea 2 L oxygen at night. patient denies sleep apnea CV/HEM Hypertension and Peripheral Vascular Disease echo reviewed from 03/2023 at [facility] [place] None reported Hepatic None reported GI None reported Metabolic Diabetes Mellitus, Hyperlipidemia and Morbid Obesity [facility] Fibromyalgia and Lower Back Pain Neuropsych None reported Anesthetic Plan ASA status: 3 Anesthesia: Anesthesia Evaluation and MAC Risk of > 500 ml blood loss (7ml/kg in children): Yes, adequate IV access and fluids planned Medications/Allergies Home Medications Medication Instructions Recorded Confirmed Last Taken Type Aspir-81 81 mg PO DAILY 02/22/21 07/22/23 07/21/23 History Glucosamine 2 tab PO DAILY 02/22/21 07/24/23 07/23/23 History cetirizine 10 mg tablet (Zyrtec) 10 mg PO DAILY 02/22/21 07/24/23 07/23/23 History cholecalciferol (vitamin D3) 25 25 mcg PO DAILY 02/22/21 07/24/23 07/23/23 History mcg (1,000 unit) tablet (Vitamin D3) fluticasone propionate 50 1 spray intranasal DAILY PRN nasal 07/06/22 07/24/23 07/23/23 Rx mcg/actuation nasal congestion #16 grams spray,suspension (Flonase Allergy Relief) ibuprofen 600 mg tablet 600 mg PO Q8H PRN pain #60 tabs 09/03/22 07/24/2323 Rx ketoconazole 2 % topical cream 1 applic topical BID #30 grams 10/21/22 07/24/23 07/23/23 Rx triamcinolone acetonide 0.1 % 1 applic topical BID #15 grams 10/23/22 07/24/23 07/23/23 Rx topical ointment furosemide 20 mg tablet (Lasix) 40 mg (2 x 20 mg) PO QAM PRN edema 02/20/23 07/24/23 07/23/23 Rx #180 tabs losartan 25 mg tablet 25 mg PO DAILY 05/07/23 07/24/23 07/23/23 History carvedilol 6.25 mg tablet 6.25 mg PO BID #180 tabs 05/18/23 07/24/23 07/24/23 Rx levothyroxine 137 mcg tablet 137 mcg PO DAILY #90 tabs 05/18/23 07/24/23 07/24/23 Rx metformin 500 mg tablet,extended 1,000 mg (2 x 500 mg) PO DAILY 05/18/23 07/24/23 07/23/23 Rx release 24 hr #180 tabs potassium chloride 20 mEq 20 meq PO DAILY #90 tabs 05/18/23 07/24/23 07/23/23 Rx tablet,extended release(part/cryst) sertraline 50 mg tablet 50 mg PO DAILY #90 tabs 05/18/23 07/24/23 07/23/23 Rx atorvastatin 20 mg tablet 20 mg PO DAILY #90 tabs 05/20/23 07/24/23 07/23/23 Rx ketoconazole 2 % shampoo 1 applic topical DAILY 06/11/23 07/24/23 07/23/23 History Allergies Allergy/AdvReac Type Severity Reaction Status Date / Time rosuvastatin [From Crestor] Allergy ADR-Muscle Verified 06/23/23 10:46 Pain Current Medications Generic Name Dose Route Start Last Admin Trade Name Freq PRN Reason Stop Dose Admin Sodium Chloride 1,000 mls @ 30 mls/hr 07/24/23 07:15 07/24/23 07:30 Sodium Chloride 0.9% IV 07/25/23 07:14 30 mls/hr .Q24H ELENA Administration PFSH Anesthesia Medical History (Updated 06/23/23 @ 11:09 by Lloyd Burciaga DO) Family history of colon cancer Environmental and seasonal allergies Adult onset hypothyroidism Anxiety Diabetes mellitus treated with oral medication Hyperlipidemia Essential (primary) hypertension Diverticulosis Surgical History (Updated 06/23/23 @ 11:09 by Lloyd Burciaga DO) History of lumpectomy of left breast 06/11/23 Dr Burciaga History of cataract both eyes in Sep.24 & 2021 with [facility] 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 Lanza [place], [place] Hx of colonoscopy Status post left foot surgery Hammer toes left Hx of angiography H/O tubal ligation Family History Other Heart disease Hypertension Denies family history of Diabetes CAD (coronary artery disease) Clotting disorder Dementia Hyperlipidemia Psychiatric illness Chronic kidney disease (CKD) Suicide Anesthesia complication Bleeding disorder Family history of premature coronary artery disease Lung disease Cancer Stroke Social History Smoking and tobacco/nicotine status: never used tobacco/nicotine Second hand smoke exposure: No Alcohol intake: never Substance/Drug Use: never Adopted: No Caregiver/support person: No Lives independently: Yes Household members: none Housing: House Marital status: / Number of children: 4 service: No Current occupational status: retired Current occupational exposures/hazards: No Pets and animals: Yes Do you think of yourself as: Straight/Heterosexual Current gender identity: Female Data Anesthesia Cardiac Studies: No Data to Display
--- NOTE | 2023-07-24 08:01 | PM.HP ---
Providers/Chief Complaint Primary Care Provider: Rolando Mayorga DO Chief Complaint: Z80.0, K92.1 History of Present Illness Shanique Wang is a 83 year old female Review of Systems General: Reports: 10 or more systems reviewed and unremarkable except in HPI and below Medications/Allergies Home Medications Medication Instructions Recorded Confirmed Last Taken Type Aspir-81 81 mg PO DAILY 02/22/21 07/22/23 07/21/23 History Glucosamine 2 tab PO DAILY 02/22/21 07/24/23 07/23/23 History cetirizine 10 mg tablet (Zyrtec) 10 mg PO DAILY 02/22/21 07/24/23 07/23/23 History cholecalciferol (vitamin D3) 25 25 mcg PO DAILY 02/22/21 07/24/23 07/23/23 History mcg (1,000 unit) tablet (Vitamin D3) fluticasone propionate 50 1 spray intranasal DAILY PRN nasal 07/06/22 07/24/23 07/23/23 Rx mcg/actuation nasal congestion #16 grams spray,suspension (Flonase Allergy Relief) ibuprofen 600 mg tablet 600 mg PO Q8H PRN pain #60 tabs 09/03/22 07/24/23 07/23/23 Rx ketoconazole 2 % topical cream 1 applic topical BID #30 grams 10/21/22 07/24/23 07/23/23 Rx triamcinolone acetonide 0.1 % 1 applic topical BID #15 grams 10/23/22 07/24/23 07/23/23 Rx topical ointment furosemide 20 mg tablet (Lasix) 40 mg (2 x 20 mg) PO QAM PRN edema 02/20/23 07/24/23 07/23/23 Rx #180 tabs losartan 25 mg tablet 25 mg PO DAILY 05/07/23 07/24/23 07/23/23 History carvedilol 6.25 mg tablet 6.25 mg PO BID #180 tabs 05/18/23 07/24/23 07/24/23 Rx levothyroxine 137 mcg tablet 137 mcg PO DAILY #90 tabs 05/18/23 07/24/23 07/24/23 Rx metformin 500 mg tablet,extended 1,000 mg (2 x 500 mg) PO DAILY 05/18/23 07/24/23 07/23/23 Rx release 24 hr #180 tabs potassium chloride 20 mEq 20 meq PO DAILY #90 tabs 05/18/23 07/24/23 07/23/23 Rx tablet,extended release(part/cryst) sertraline 50 mg tablet 50 mg PO DAILY #90 tabs 05/18/23 07/24/23 07/23/23 Rx atorvastatin 20 mg tablet 20 mg PO DAILY #90 tabs 05/20/23 07/24/23 07/23/23 Rx ketoconazole 2 % shampoo 1 applic topical DAILY 06/11/23 07/24/23 07/23/23 History Allergies Allergy/AdvReac Type Severity Reaction Status Date / Time rosuvastatin [From Crestor] Allergy ADR-Muscle Verified 06/23/23 10:46 Pain PFSH Acute PFSH: Medical History Family history of colon cancer Environmental and seasonal allergies Adult onset hypothyroidism Anxiety Diabetes mellitus treated with oral medication Hyperlipidemia Essential (primary) hypertension Diverticulosis Surgical History History of lumpectomy of left breast 06/11/23 Dr Burciaga History of cataract both eyes in Sep.24 & 2021 with [facility] 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 [place] Hx of colonoscopy Status post left foot surgery Hammer toes left Hx of angiography H/O tubal ligation Family History Other Heart disease Hypertension Denies family history of Diabetes CAD (coronary artery disease) Clotting disorder Dementia Hyperlipidemia Psychiatric illness Chronic kidney disease (CKD) Suicide Anesthesia complication Bleeding disorder Family history of premature coronary artery disease Lung disease Cancer Stroke Social History Smoking and tobacco/nicotine status: never used tobacco/nicotine Second hand smoke exposure: No Alcohol intake: never Substance/Drug Use: never Adopted: No Caregiver/support person: No Lives independently: Yes Household members: none Housing: House Marital status: / Number of children: 4 service: No Current occupational status: retired Current occupational exposures/hazards: No Pets and animals: Yes Do you think of yourself as: Straight/Heterosexual Current gender identity: Female Vitals/I&O/Wt Last Vital Signs Temp 97.0 F L 07/24/23 07:15 Pulse 82 07/24/23 07:15 Resp 18 07/24/23 07:15 BP 150/83 07/24/23 07:15 Pulse Ox 93 07/24/23 07:15 O2 Del Method Room Air 07/24/23 07:15 Weight last 48 hrs Weight 220 lb A&P Assessment and plan (1) Hematochezia: (2) Family history of colon cancer: Plan Colonoscopy Attestations Medical Necessity Statement*: Home Coding Level of Care Code Acute Code for Chg Fwd Diagnoses Hematochezia K92.1 Family history of colon cancer Z80.0
[2023-07-24 08:33] VITALS: BP 109/61; PULSE 74; RESP 14; TEMP 36.1; O2SAT 95
[2023-07-24 08:52] VITALS: BP 141/75; PULSE 72; RESP 18; O2SAT 95
--- NOTE | 2023-07-24 14:46 | ANE.PACU2 ---
Inpatient post-anesthesia follow up: Airway intact: Yes Vital signs: Temperature 97 F Pulse Rate 72 Respiratory Rate 18 Blood Pressure 141/75 Pulse Oximetry 95 Oxygen Delivery Me thod Room Air Oxygen Flow Rate Fraction of Inspir ed Oxygen Hydration adequate: Yes Nausea and vomiting: No Pain level: 2 Mental status: Baseline
== END 2023-07-24 09:07 | disposition home or self-care (01) ==
PROVIDERS: PCP Family Medicine; Visit Provider Surgery
PROC: 0DJD8ZZ Inspection of Lower Intestinal Tract, Via Natural or Artificial Opening Endoscopic (ICD-10-PCS; CPT 45378; principal; 2023-07-24 08:00)
DX: K57.30 Diverticulosis of large intestine without perforation or abscess without bleeding (principal); K64.8 Other hemorrhoids; D12.5 Benign neoplasm of sigmoid colon; D12.3 Benign neoplasm of transverse colon; Z80.0 Family history of malignant neoplasm of digestive organs; Z99.81 Dependence on supplemental oxygen; I10 Essential (primary) hypertension; E11.9 Type 2 diabetes mellitus without complications; E78.5 Hyperlipidemia, unspecified; E66.01 Morbid (severe) obesity due to excess calories; Z68.37 Body mass index [BMI] 37.0-37.9, adult; M79.7 Fibromyalgia; Z79.84 Long term (current) use of oral hypoglycemic drugs; Z79.82 Long term (current) use of aspirin
CPT/HCPCS: 36416; 45385; 82962; 88305; J2704; J7030

== ENCOUNTER → 2023-08-20 10:17 | Outpatient (BNVA) | payer MEDICARE, OTHER, SELFPAY | PROVIDERS: PCP Family Medicine; Visit Provider Surgery | DX: Z09 Encounter for follow-up examination after completed treatment for conditions other than malignant neoplasm (principal); K64.8 Other hemorrhoids; D37.4 Neoplasm of uncertain behavior of colon | CPT/HCPCS: 99213 ==

== ENCOUNTER → 2023-09-16 13:58 | Outpatient (BNVA) | payer MEDICARE, OTHER, SELFPAY | PROVIDERS: PCP Family Medicine; Visit Provider Podiatrist Foot & Ankle Surgery | DX: E11.9 Type 2 diabetes mellitus without complications (principal); Z79.84 Long term (current) use of oral hypoglycemic drugs; L60.3 Nail dystrophy; I73.9 Peripheral vascular disease, unspecified | CPT/HCPCS: 11721 ==

== ENCOUNTER → 2023-11-13 11:14 | Outpatient (BNVA) | payer MEDICARE, OTHER, SELFPAY | PROVIDERS: PCP Family Medicine; Visit Provider Nurse Practitioner Family | DX: L57.0 Actinic keratosis (principal); L82.0 Inflamed seborrheic keratosis; B07.8 Other viral warts; L57.8 Other skin changes due to chronic exposure to nonionizing radiation; D22.5 Melanocytic nevi of trunk | CPT/HCPCS: 17000; 17110; 99213 ==

== ENCOUNTER → 2023-12-08 09:18 | Outpatient (BNVA) | payer MEDICARE, OTHER, SELFPAY | PROVIDERS: PCP Family Medicine; Visit Provider Podiatrist Foot & Ankle Surgery | DX: Z79.84 Long term (current) use of oral hypoglycemic drugs; L60.3 Nail dystrophy; I73.9 Peripheral vascular disease, unspecified; E11.69 Type 2 diabetes mellitus with other specified complication | CPT/HCPCS: 11721 ==

== ENCOUNTER → 2023-12-15 10:05 | Outpatient (BNVA) | payer MEDICARE, OTHER, SELFPAY | PROVIDERS: PCP Family Medicine; Visit Provider Nurse Practitioner Family | DX: B07.8 Other viral warts (principal); L57.8 Other skin changes due to chronic exposure to nonionizing radiation; D22.5 Melanocytic nevi of trunk; L81.4 Other melanin hyperpigmentation; L82.1 Other seborrheic keratosis; Z85.828 Personal history of other malignant neoplasm of skin | CPT/HCPCS: 17110; 99213 ==

== ENCOUNTER 2024-01-07 09:27 | Outpatient (CLI) | payer MEDICARE, OTHER, SELFPAY ==
--- NOTE | 2024-01-07 10:00 | MM_ITS ---
WS: [id number] LEFT 3D TOMOSYNTHESIS DIGITAL MAMMOGRAPHY WITH CAD CLINICAL INFORMATION: follow up imaging HISTORY: 6-month follow-up lumpectomy. Benign tissue. COMPARISON: Multiple studies from 2022. TECHNIQUE: 3 views of the left breast were obtained. FINDINGS: The left breast is composed of heterogeneous fibroglandular density tissue, which can limit the detec tion of small underlying mass lesions. Dense parenchymal tissue in the area of lumpectomy with parenc hymal scarring. Ultrasound of this area is pending. Incidental punctate calcifications. No other new findings. ULTRASOUND BREAST LEFT TECHNIQUE: Ultrasound left breast focused area of concern. CLINICAL INFORMATION: follow up imaging FINDINGS: Ultrasound LEFT breast area of lumpectomy 3 o'clock position. Dense parenchymal scar tissue with a sm all seroma. Surrounding nodularity. Areas of nodularity may present fat necrosis or resolving hematom a. Recommend 6-month follow-up with LEFT breast diagnostic mammography and ultrasound. Fluid collecti on compatible with seroma measures 1.8 x 1.9 x 0.7 cm. MM/[place] [id number] IMPRESSION: BI-RADS: 3-Probably Benign FOLLOW UP: 6 Month Follow-up LEFT breast diagnostic mammography and ultrasound in 6 months
--- NOTE | 2024-01-07 11:06 | US_ITS ---
WS: [id number] LEFT 3D TOMOSYNTHESIS DIGITAL MAMMOGRAPHY WITH CAD CLINICAL INFORMATION: follow up imaging HISTORY: 6-month follow-up lumpectomy. Benign tissue. COMPARISON: Multiple studies from 2022. TECHNIQUE: 3 views of the left breast were obtained. FINDINGS: The left breast is composed of heterogeneous fibroglandular density tissue, which can limit the detec tion of small underlying mass lesions. Dense parenchymal tissue in the area of lumpectomy with parenc hymal scarring. Ultrasound of this area is pending. Incidental punctate calcifications. No other new findings. ULTRASOUND BREAST LEFT TECHNIQUE: Ultrasound left breast focused area of concern. CLINICAL INFORMATION: follow up imaging FINDINGS: Ultrasound LEFT breast area of lumpectomy 3 o'clock position. Dense parenchymal scar tissue with a sm all seroma. Surrounding nodularity. Areas of nodularity may present fat necrosis or resolving hematom a. Recommend 6-month follow-up with LEFT breast diagnostic mammography and ultrasound. Fluid collecti on compatible with seroma measures 1.8 x 1.9 x 0.7 cm. US/US breast LT limited* [id number] IMPRESSION: BI-RADS: 3-Probably Benign FOLLOW UP: 6 Month Follow-up LEFT breast diagnostic mammography and ultrasound in 6 months
== END 2024-01-07 09:28 | disposition home or self-care (01) ==
LOC: RAD 09:27
PROVIDERS: PCP Family Medicine; Visit Provider Family Medicine
DX: Z98.890 Other specified postprocedural states (principal); R92.30 Dense breasts, unspecified; N64.89 Other specified disorders of breast
CPT/HCPCS: 76642; 77061; G0279

== ENCOUNTER → 2024-01-20 15:00 | Outpatient (BNVA) | payer MEDICARE, OTHER, SELFPAY | PROVIDERS: PCP Family Medicine; Visit Provider Nurse Practitioner Family | DX: B07.8 Other viral warts (principal); L57.0 Actinic keratosis; L82.1 Other seborrheic keratosis; L81.4 Other melanin hyperpigmentation; D22.5 Melanocytic nevi of trunk | CPT/HCPCS: 17000; 17110; 99213 ==

== ENCOUNTER → 2024-02-10 11:16 | Outpatient (BNVA) | payer MEDICARE, OTHER, SELFPAY | PROVIDERS: PCP Family Medicine; Visit Provider Nurse Practitioner Family | DX: B07.8 Other viral warts (principal); L57.0 Actinic keratosis; L82.0 Inflamed seborrheic keratosis; Z85.828 Personal history of other malignant neoplasm of skin | CPT/HCPCS: 17000; 17110; 99213 ==

== ENCOUNTER → 2024-02-22 09:41 | Outpatient (BNVA) | payer MEDICARE, OTHER, SELFPAY | PROVIDERS: PCP Family Medicine; Visit Provider Family Medicine | DX: E03.8 Other specified hypothyroidism (principal); E78.2 Mixed hyperlipidemia; I10 Essential (primary) hypertension; E11.9 Type 2 diabetes mellitus without complications; Z79.84 Long term (current) use of oral hypoglycemic drugs; E55.9 Vitamin D deficiency, unspecified; F41.9 Anxiety disorder, unspecified | CPT/HCPCS: 80053; 80061; 82306; 83036; 84443; 85025 ==

== ENCOUNTER → 2024-03-03 10:37 | Outpatient (BNVA) | payer MEDICARE, OTHER, SELFPAY | PROVIDERS: Visit Provider Nurse Practitioner Family | DX: Z85.828 Personal history of other malignant neoplasm of skin (principal); B07.8 Other viral warts; L82.0 Inflamed seborrheic keratosis | CPT/HCPCS: 17110; 99213 ==

== ENCOUNTER → 2024-03-08 09:45 | Outpatient (BNVA) | payer MEDICARE, OTHER, SELFPAY | PROVIDERS: PCP Family Medicine; Visit Provider Podiatrist Foot & Ankle Surgery | DX: Z79.84 Long term (current) use of oral hypoglycemic drugs; L60.3 Nail dystrophy; I73.9 Peripheral vascular disease, unspecified; E11.69 Type 2 diabetes mellitus with other specified complication | CPT/HCPCS: 11721 ==

== ENCOUNTER 2024-03-09 06:00 | Outpatient (RCR) | payer MEDICARE, OTHER, SELFPAY | END 2024-03-16 23:59 | disposition home or self-care (01) | LOC: APT 06:00 | PROVIDERS: PCP Family Medicine; Visit Provider Family Medicine | DX: R26.9 Unspecified abnormalities of gait and mobility (principal) | CPT/HCPCS: 97110; 97112; 97163 ==

== ENCOUNTER 2024-03-17 06:00 | Outpatient (RCR) | payer MEDICARE, OTHER, SELFPAY | END 2024-04-16 23:59 | disposition home or self-care (01) | LOC: APT 06:00 | PROVIDERS: PCP Family Medicine; Visit Provider Family Medicine | DX: R26.89 Other abnormalities of gait and mobility (principal) | CPT/HCPCS: 97110; 97112; 97530 ==

== ENCOUNTER → 2024-03-24 12:32 | Outpatient (BNVA) | payer MEDICARE, OTHER, SELFPAY | PROVIDERS: PCP Family Medicine; Visit Provider Nurse Practitioner Family | DX: Z85.858 Personal history of malignant neoplasm of other endocrine glands (principal); B07.8 Other viral warts; L82.0 Inflamed seborrheic keratosis | CPT/HCPCS: 17110; 99213 ==

== ENCOUNTER → 2024-04-14 10:15 | Outpatient (BNVA) | payer MEDICARE, OTHER, SELFPAY | PROVIDERS: PCP Family Medicine; Visit Provider Nurse Practitioner Family | DX: Z08 Encounter for follow-up examination after completed treatment for malignant neoplasm (principal); B07.8 Other viral warts; L82.0 Inflamed seborrheic keratosis; Z85.828 Personal history of other malignant neoplasm of skin | CPT/HCPCS: 17110; 99213 ==

== ENCOUNTER 2024-04-17 06:00 | Outpatient (RCR) | payer MEDICARE, OTHER, SELFPAY | END 2024-05-16 23:59 | disposition home or self-care (01) | LOC: APT 06:00 | PROVIDERS: PCP Family Medicine; Visit Provider Family Medicine | DX: R26.89 Other abnormalities of gait and mobility (principal) | CPT/HCPCS: 97110; 97530 ==

== ENCOUNTER → 2024-05-10 10:25 | Outpatient (BNVA) | payer MEDICARE, OTHER, SELFPAY | PROVIDERS: PCP Family Medicine; Visit Provider Nurse Practitioner Family | DX: Z85.828 Personal history of other malignant neoplasm of skin (principal); B07.8 Other viral warts | CPT/HCPCS: 17110; 99213 ==

== ENCOUNTER → 2024-05-12 09:08 | Outpatient (BNVA) | payer MEDICARE, OTHER, SELFPAY | PROVIDERS: PCP Family Medicine; Visit Provider Family Medicine | DX: E03.8 Other specified hypothyroidism | CPT/HCPCS: 80061 ==

== ENCOUNTER → 2024-05-30 08:39 | Outpatient (BNVA) | payer MEDICARE, OTHER, SELFPAY | PROVIDERS: PCP Family Medicine; Visit Provider Family Medicine | DX: E11.9 Type 2 diabetes mellitus without complications (principal); Z79.84 Long term (current) use of oral hypoglycemic drugs; E78.2 Mixed hyperlipidemia; E03.9 Hypothyroidism, unspecified | CPT/HCPCS: 80061; 83036; 84443 ==

== ENCOUNTER → 2024-05-31 10:18 | Outpatient (BNVA) | payer MEDICARE, OTHER, SELFPAY | PROVIDERS: PCP Family Medicine; Visit Provider Nurse Practitioner Family | DX: B07.8 Other viral warts (principal); L82.1 Other seborrheic keratosis; L81.4 Other melanin hyperpigmentation; Z85.828 Personal history of other malignant neoplasm of skin | CPT/HCPCS: 17110; 99213 ==

== ENCOUNTER → 2024-06-14 10:07 | Outpatient (BNVA) | payer MEDICARE, OTHER, SELFPAY | PROVIDERS: PCP Family Medicine; Visit Provider Podiatrist Foot & Ankle Surgery | DX: Z79.84 Long term (current) use of oral hypoglycemic drugs; L60.3 Nail dystrophy; I73.9 Peripheral vascular disease, unspecified; E11.69 Type 2 diabetes mellitus with other specified complication | CPT/HCPCS: 11721 ==

== ENCOUNTER → 2024-07-11 09:28 | Outpatient (BNVA) | payer MEDICARE, OTHER, SELFPAY | PROVIDERS: PCP Family Medicine; Visit Provider Nurse Practitioner Family | DX: L81.4 Other melanin hyperpigmentation (principal); Z85.828 Personal history of other malignant neoplasm of skin; B07.8 Other viral warts; L53.8 Other specified erythematous conditions; L82.0 Inflamed seborrheic keratosis; Z29.89 Encounter for other specified prophylactic measures | CPT/HCPCS: 17110; 99213 ==

== ENCOUNTER → 2024-08-16 09:51 | Outpatient (BNVA) | payer MEDICARE, OTHER, SELFPAY | PROVIDERS: PCP Family Medicine; Visit Provider Nurse Practitioner Family | DX: L81.4 Other melanin hyperpigmentation (principal); Z08 Encounter for follow-up examination after completed treatment for malignant neoplasm; Z85.828 Personal history of other malignant neoplasm of skin; B07.8 Other viral warts; R20.8 Other disturbances of skin sensation; L53.8 Other specified erythematous conditions; L82.0 Inflamed seborrheic keratosis; L29.89 Other pruritus | CPT/HCPCS: 17110; 99213 ==

== ENCOUNTER 2024-08-25 10:22 | Outpatient (CLI) | payer MEDICARE, OTHER, SELFPAY ==
--- NOTE | 2024-08-25 11:00 | MM_ITS ---
WS: [id number] BILATERAL 3D TOMOSYNTHESIS DIGITAL DIAGNOSTIC MAMMOGRAPHY WITH CAD CLINICAL INFORMATION: 6 months follow up HISTORY: 6-month follow-up COMPARISON: 01/07/2024 TECHNIQUE: Bilateral CC, MLO, and ML views. FINDINGS: Scattered fibroglandular densities bilaterally. Dense parenchymal tissue in the area of lumpectomy with parenchymal scarring. Ultrasound of this area is pending. Incidental punctate calcifications. No other new findings. ULTRASOUND BREAST LEFT TECHNIQUE: Ultrasound left breast focused area of concern. CLINICAL INFORMATION: 6 months follow up FINDINGS: Ultrasound LEFT breast area of lumpectomy in the 3 o'clock position. Again seen is dense parenchymal tissue at the lumpectomy site with posterior shadowing. The fluid collection previously measured 1.8 x 1.9 x 0.7 cm. No significant measurable fluid collection today. Recommend return to annual diagnost ic mammography MM/MM diag BI tomosynthesis [id number] IMPRESSION: DENSITY: There are scattered areas of fibroglandular density. BI-RADS: 2 - Benign. FOLLOW UP: 1 Year Follow-up Recommend return to annual diagnostic mammography
--- NOTE | 2024-08-25 11:36 | US_ITS ---
WS: [id number] BILATERAL 3D TOMOSYNTHESIS DIGITAL DIAGNOSTIC MAMMOGRAPHY WITH CAD CLINICAL INFORMATION: 6 months follow up HISTORY: 6-month follow-up COMPARISON: 01/07/2024 TECHNIQUE: Bilateral CC, MLO, and ML views. FINDINGS: Scattered fibroglandular densities bilaterally. Dense parenchymal tissue in the area of lumpectomy with parenchymal scarring. Ultrasound of this area is pending. Incidental punctate calcifications. No other new findings. ULTRASOUND BREAST LEFT TECHNIQUE: Ultrasound left breast focused area of concern. CLINICAL INFORMATION: 6 months follow up FINDINGS: Ultrasound LEFT breast area of lumpectomy in the 3 o'clock position. Again seen is dense parenchymal tissue at the lumpectomy site with posterior shadowing. The fluid collection previously measured 1.8 x 1.9 x 0.7 cm. No significant measurable fluid collection today. Recommend return to annual diagnost ic mammography US/US breast LT limited* [id number] IMPRESSION: DENSITY: There are scattered areas of fibroglandular density. BI-RADS: 2 - Benign. FOLLOW UP: 1 Year Follow-up Recommend return to annual diagnostic mammography
== END 2024-08-25 10:23 | disposition home or self-care (01) ==
PROVIDERS: PCP Family Medicine; Visit Provider Family Medicine
DX: R92.8 Other abnormal and inconclusive findings on diagnostic imaging of breast (principal); R92.323 Mammographic fibroglandular density, bilateral breasts; R92.30 Dense breasts, unspecified; R92.1 Mammographic calcification found on diagnostic imaging of breast
CPT/HCPCS: 76642; 77061; 77062; G0279

== ENCOUNTER 2024-09-06 14:54 | Outpatient (CLI) | payer MEDICARE, OTHER, SELFPAY ==
--- NOTE | 2024-09-06 15:05 | USCV_ITS ---
Shanique Wang Age: 84 Gender: F : 1940 Exam Date: 09/06/2024 15:12 Ordering Phys: Rolando Mayorga DO Technologist: CHARISSE Exam Location: [facility] [place] Indication: LE Edema and Swelling HISTORY: Lower extremity swelling. Lower extremity edema. PROCEDURES: Venous duplex imaging was performed in only the left lower extremity. The following venous structures were evaluated: common femoral vein, profunda vein, proximal portion of the greater saphenous vein, superficial femoral vein, and the popliteal vein. In addition, the posterior tibial and peroneal trunk were evaluated. FINDINGS: No evidence of DVT seen in any vessel visualized at this time. Lt GSV above knee to the GSV junction appears to have a subacute to chronic superficial thrombus in it. Complex cystic mass with low level echos and no vascularity measuring 3.2 cm in the left popliteal fossa. CONCLUSIONS No DVT left lower extremity. Left popliteal fossa Knight's cyst. 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 Preliminary report called after completion of the exam. Dr. Harika Rivera DO (Electronically Signed) Final Date: 06 September 2024 15:52 S
== END 2024-09-06 14:55 | disposition home or self-care (01) ==
PROVIDERS: PCP Family Medicine; Visit Provider Family Medicine
DX: I80.02 Phlebitis and thrombophlebitis of superficial vessels of left lower extremity (principal); M71.22 Synovial cyst of popliteal space [Baker], left knee; R06.00 Dyspnea, unspecified
CPT/HCPCS: 93971

== ENCOUNTER → 2024-09-12 10:09 | Outpatient (BNVA) | payer MEDICARE, OTHER, SELFPAY | PROVIDERS: PCP Family Medicine; Visit Provider Family Medicine | DX: E78.2 Mixed hyperlipidemia; E03.9 Hypothyroidism, unspecified; E11.9 Type 2 diabetes mellitus without complications; Z79.84 Long term (current) use of oral hypoglycemic drugs; E03.8 Other specified hypothyroidism; R60.9 Edema, unspecified | CPT/HCPCS: 80053; 80061; 83036; 84443; 85025 ==

== ENCOUNTER 2024-10-20 09:55 | Outpatient (CLI) | payer MEDICARE, OTHER, SELFPAY ==
--- NOTE | 2024-10-20 10:15 | USR_ITS ---
PROCEDURE INFORMATION: Exam: US Duplex Lower Extremity Veins, Bilateral Exam date and time: 10/20/2024 10:08 AM Age: 84 years old Clinical indication: Pain; Leg, lower; Bilateral; Additional info: I73.9 - peripheral vascular disease, unspecified TECHNIQUE: Imaging protocol: Real-time duplex ultrasound of the bilateral extremities with 2-D benites scale, color Doppler flow and spectral waveform analysis including responses to compression and other maneuvers (when performed) with image documentation. Complete exam focused on the lower extremity veins. COMPARISON: [place] [id number] 09/06/2024 3:12 PM FINDINGS: Right deep veins: Venous reflux is demonstrated in the right common femoral vein . No evidence of DVT. Right superficial veins: Saphenofemoral junction and greater saphenous veins are patent without thrombus. Reflux is demonstrated in the greater saphenous vein. Left deep veins: Unremarkable. The common femoral, femoral, proximal profunda femoral and popliteal veins are patent without thrombus. Normal Doppler waveforms. Normal compressibility and/or augmentation response. No evidence of venous reflux. Left superficial veins: Saphenofemoral junction and greater saphenous veins are patent without thrombus. No evidence of venous reflux. Soft tissues: Unremarkable. US/[place] [id number] IMPRESSION: No evidence of DVT. Venous reflux is seen in the right common femoral and right greater saphenous veins.
== END 2024-10-20 09:56 | disposition home or self-care (01) ==
PROVIDERS: PCP Family Medicine; Visit Provider Family Medicine
DX: R60.0 Localized edema (principal); I87.8 Other specified disorders of veins
CPT/HCPCS: 93970

== ENCOUNTER 2024-11-04 06:32 | Outpatient (CLI) | payer MEDICARE, OTHER, SELFPAY ==
--- NOTE | 2024-11-04 06:45 | USR_ITS ---
PROCEDURE INFORMATION: Exam: US Duplex Bilateral Lower Extremity Arteries Exam date and time: 11/04/2024 6:41 AM Age: 84 years old Clinical indication: Condition or disease; Peripheral vascular disease; Additional info: I73.9 - peripheral vascular disease, unspecified TECHNIQUE: Imaging protocol: Real-time ultrasound scan of the arteries of the bilateral lower extremities with 2-D benites scale, color Doppler flow and spectral waveform analysis. Images documented and saved. COMPARISON: [place] [id number] 10/20/2024 10:08 AM FINDINGS: Right common femoral artery: No occlusion or significant stenosis. Normal waveform. Right superficial femoral artery: No occlusion or significant stenosis. Normal waveform. Right popliteal artery: No occlusion or significant stenosis. Normal waveform. Right calf/foot arteries: No occlusion or significant stenosis in the visualized arteries. Normal waveforms. Dorsalis pedis artery is patent. Left common femoral artery: No occlusion or significant stenosis. Normal waveform. Left superficial femoral artery: No occlusion or significant stenosis. Normal waveform. Left popliteal artery: No occlusion or significant stenosis. Normal waveform. Left calf/foot arteries: No occlusion or significant stenosis in the visualized arteries. Normal waveforms. Dorsalis pedis artery is patent. Right MONICA equals 1.3. Left MONICA equals 1.1. US/[place] [id number] IMPRESSION: No stenosis or occlusion.
== END 2024-11-04 06:33 | disposition home or self-care (01) ==
LOC: RAD 06:33
PROVIDERS: PCP Family Medicine; Visit Provider Family Medicine
DX: I73.9 Peripheral vascular disease, unspecified (principal)
CPT/HCPCS: 93925

== ENCOUNTER → 2024-12-06 08:07 | Outpatient (BNVA) | payer MEDICARE, OTHER, SELFPAY | PROVIDERS: PCP Family Medicine; Visit Provider Podiatrist Foot & Ankle Surgery | DX: E11.8 Type 2 diabetes mellitus with unspecified complications (principal); Z79.84 Long term (current) use of oral hypoglycemic drugs; L60.3 Nail dystrophy; I73.9 Peripheral vascular disease, unspecified; L30.9 Dermatitis, unspecified; S99.921A Unspecified injury of right foot, initial encounter; W19.XXXA Unspecified fall, initial encounter | CPT/HCPCS: 11721; 99213 ==

== ENCOUNTER → 2025-02-20 08:53 | Outpatient (BNVA) | payer MEDICARE, OTHER, SELFPAY | PROVIDERS: PCP Family Medicine; Visit Provider Family Medicine | DX: E11.9 Type 2 diabetes mellitus without complications (principal) | CPT/HCPCS: 80053; 80061; 82607; 83036; 84443 ==

== ENCOUNTER → 2025-03-07 08:39 | Outpatient (BNVA) | payer MEDICARE, OTHER, SELFPAY | PROVIDERS: PCP Family Medicine; Visit Provider Podiatrist Foot & Ankle Surgery | DX: E11.69 Type 2 diabetes mellitus with other specified complication (principal); L60.3 Nail dystrophy; Z79.84 Long term (current) use of oral hypoglycemic drugs; E11.8 Type 2 diabetes mellitus with unspecified complications; I73.9 Peripheral vascular disease, unspecified; G62.9 Polyneuropathy, unspecified; B35.3 Tinea pedis | CPT/HCPCS: 11721; 99213 ==

== ENCOUNTER → 2025-05-17 11:36 | Outpatient (BNVA) | payer MEDICARE, OTHER, SELFPAY | PROVIDERS: PCP Family Medicine; Visit Provider Family Medicine | DX: I10 Essential (primary) hypertension (principal); I73.9 Peripheral vascular disease, unspecified; E11.9 Type 2 diabetes mellitus without complications; Z79.84 Long term (current) use of oral hypoglycemic drugs; L85.3 Xerosis cutis; R60.9 Edema, unspecified; R26.89 Other abnormalities of gait and mobility; R26.81 Unsteadiness on feet; E03.9 Hypothyroidism, unspecified; N39.0 Urinary tract infection, site not specified | CPT/HCPCS: 80053; 81000; 82607; 83036; 84443; 85025 ==

== ENCOUNTER 2025-06-02 13:08 | Outpatient (CLI) | payer MEDICARE, OTHER, SELFPAY ==
--- NOTE | 2025-06-02 13:45 | MR_ITS ---
WS: [id number] MRI HEAD WITHOUT CONTRAST TECHNIQUE: Sagittal T1, T2 axial, T2 axial FLAIR, axial and coronal T1 images, axial susceptibility weighted imaging, axial diffusion weighted images, and coronal T2 images were obtained. CLINICAL INFORMATION: R26.89 - Other abnormalities of gait and mobility COMPARISON: CT 2021 FINDINGS: No evidence of restricted diffusion to suggest acute ischemia. Ventricular system and basilar cisterns are patent. Mild small vessel changes. Moderate parenchymal volume loss. Small vessel changes in the kian. Normal vascular flow voids at the skull base. No extra-axial fluid collections. Tiny chronic lacunar infarct LEFT caudate. No hemosiderin on susceptibility-weighted images. Normal optic chiasm and pituitary infundibulum. 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 MR/MR head wo con* [id number] IMPRESSION: 1. No evidence of restricted diffusion to suggest acute ischemia. 2. Mild small vessel changes. Moderate parenchymal volume loss. 3. No hemosiderin on susceptibility-weighted images. 4. Normal optic chiasm and pituitary infundibulum. 5. 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 6. Tiny chronic lacunar infarct LEFT caudate.
== END 2025-06-02 13:09 | disposition home or self-care (01) ==
LOC: RAD 13:09
PROVIDERS: PCP Family Medicine; Visit Provider Family Medicine
DX: R26.89 Other abnormalities of gait and mobility (principal); R26.81 Unsteadiness on feet; G31.89 Other specified degenerative diseases of nervous system; I63.81 Other cerebral infarction due to occlusion or stenosis of small artery
CPT/HCPCS: 70551

== ENCOUNTER → 2025-06-12 13:30 | Outpatient (BNVA) | payer MEDICARE, OTHER, SELFPAY | PROVIDERS: PCP Family Medicine; Visit Provider Podiatrist Foot & Ankle Surgery | DX: E11.42 Type 2 diabetes mellitus with diabetic polyneuropathy (principal); B35.3 Tinea pedis; E11.8 Type 2 diabetes mellitus with unspecified complications; Z79.84 Long term (current) use of oral hypoglycemic drugs; L60.3 Nail dystrophy; I73.9 Peripheral vascular disease, unspecified; G62.9 Polyneuropathy, unspecified | CPT/HCPCS: 11721 ==